=== PATIENT | female | born 1965 | race Two or more races ===

== ENCOUNTER 2017-06-20 16:51 | Inpatient (IN) | payer MEDICAID, OTHER ==
--- NOTE | 2017-06-20 17:08 | CPEKG ---
Heart Rate: 158 RR Interval: 380 QRSD Interval: 98 QT Interval: 332 QTC Interval: 539 QRS [place]: 90 T Wave [place]: 52 EKG Severity - ABNORMAL ECG - EKG Impression: A-FLUTTER W/ PREDOM 2:1 AV BLOCK, A-RATE 319 EKG Impression: BORDERLINE RIGHT AXIS DEVIATION EKG Impression: BORDERLINE ST DEPRESSION, DIFFUSE LEADS EKG Impression: PROLONGED QT INTERVAL Electronically Signed By: Elia Yu 20-Jun-2017 20:55:15
[2017-06-20] MEDS ORDERED: DILTIAZEM 125 MG in D5W 125 ML IV ONE (17:13)
[2017-06-20] MEDS ORDERED: DILTIAZEM 25 MG/5 ML VIAL IVP ONE (17:13)
[2017-06-20] MEDS ORDERED: ASPIRIN 325 MG TAB PO ONE (17:13)
--- NOTE | 2017-06-20 17:13 | EDPHY ---
H & P Stated Complaint: Sharp,intermittent L sided CP x 4 days - Personal History LMP (Females 10-55): 8-14 Days Ago Current Tetanus Diphtheria and Acellular Pertussis (TDAP): Yes Tetanus Vaccine Date: WITHIN 10 YRS - Medical/Surgical History Hx Asthma: No Hx Chronic Respiratory Disease: No Hx Diabetes: No Hx Cardiac Disease: Yes Hx Renal Disease: No Hx Cirrhosis: No Hx Alcoholism: No Hx HIV/AIDS: No Hx Splenectomy or Spleen Trauma: No Other PMH: atrial fibrillation, pericarditis, tubal ligation, open cholecystectomy, c section x3, migraines, mitral valve stenosis, sleep apnea, acid reflux - Social History Smoking Status: Never smoked Time Seen by Provider: 06/20/17 17:01 HPI/ROS: Chief complaint: Chest discomfort History of present illness: This is a 52-year-old female with a history of paroxysmal atrial fibrillation currently on Coumadin who presents to the emergency department for chest discomfort. Patient reports the onset of symptoms over the last 3-4 days. However over the last 1-2 days they have significantly worsened. She describes primarily a pressure that radiates into her neck and left arm. Occasionally she gets a sharp pain. She does occasionally get short of breath most pronounced with exertion. She denies precipitating factors. She denies alleviating factors. She denies other associated signs or symptoms. Review of systems: A 10 point review of systems was obtained and other than described above was negative (Mykel Madrigal) - Physical Exam Exam: General Appearance: Alert, unwell appearing. Eyes: Pupils equal and round no pallor or injection. ENT, Mouth: Mucous membranes moist. Respiratory: There are no retractions, lungs are clear to auscultation. Cardiovascular: Tachycardic with regular rhythm. Gastrointestinal: Abdomen is soft and nontender, no masses, bowel sounds normal. Neurological: Alert and oriented x4. Strength and sensation intact and symmetrical. Skin: Warm and dry, no rashes. Musculoskeletal: Neck is supple nontender. Extremities are symmetrical, full range of motion. Psychiatric: Patient is oriented X 3, there is no agitation. (Mykel Madrigal) Constitutional: Initial Vital Signs Temperature (C) 36.6 C 06/20/17 16:54 Heart Rate 102 H 06/20/17 16:54 Respiratory Rate 22 H 06/20/17 16:54 Blood Pressure 104/82 H 06/20/17 16:54 O2 Sat (%) 98 06/20/17 16:54 O2 Delivery Mode Nasal Cannula O2 (L/minute) 2 Allergies/Adverse Reactions: No Known Allergies Allergy (Verified 06/20/17 16:54) Home Medications: Medication Instructions Recorded Warfarin Sodium [Coumadin 2.5MG 2.5 mg PO DAILY 09/05/15 (*)] Potassium Cl [Klor-Con 20 meq (*)] 20 meq PO DAILY #30 tab 09/06/15 Metoprolol Tartrate [Lopressor 50 50 mg PO BIDMEAL 06/12/16 mg (*)] Pantoprazole Sodium [Protonix 40mg 40 mg PO DAILY 06/12/16 (*)] Propafenone HCl [Rythmol 150mg (*)] 150 mg PO Q8H 06/12/16 Ondansetron Odt [Zofran Odt 4 mg 4 mg PO Q4PRN PRN #10 tab 07/17/16 (*)] Medical Decision Making - Diagnostics Imaging: I viewed and interpreted images myself - Diagnostics Imaging Results: Imaging Impressions Chest X-Ray 06/20/17 17:12 Impression: Negative portable chest. ED Course/Re-evaluation: 17:15 I discussed and examined this patient along with JOSEFINA Amaya. Laboratory studies reviewed. Treatment plan reviewed. I concur with his assessment and plan. Plan to admit for management of tachycardia. Discussed treatment plan with the patient. Alcohol Still Operator at bedside. The patient and her family are comfortable with this plan. (Elia Yu) Patient seen in conjunction with my secondary supervising physician Dr. Elia Yu. Patient presents to the emergency department for chest pain and some exertional dyspnea. Ultimately she appears to be in atrial fibrillation with rapid ventricular rate. She has had this problem previously. She is given an aspirin. She is given 10 mg of Cardizem and started on a Cardizem drip with improvement but not resolution of symptoms. She will be admitted to the hospitalist service, Dr. Coy Huang. On-call cardiology Dr. Harding will follow along. (Mykel Madrigal) Differential Diagnosis: Included but not limited to atrial fibrillation, atrial flutter, supraventricular tachycardia, ventricular tachycardia or fibrillation, ACS, pulmonary embolism (Mykel Madrigal) - Data Points Laboratory Results: Laboratory Results 06/20/17 17:25 06/20/17 17:25 06/20/17 06/20/17 06/20/17 17:25 17:25 17:25 WBC 6.57 10^3/uL 10^3/uL (3.80-9.50) RBC 4.96 10^6/uL 10^6/uL (4.18-5.33) Hgb 13.8 g/dL g/dL (12.6-16.3) Hct 42.0 % % (38.0-47.0) MCV 84.7 fL fL (81.5-99.8) MCH 27.8 pg L pg (27.9-34.1) MCHC 32.9 g/dL g/dL (32.4-36.7) RDW 14.3 % % (11.5-15.2) Plt Count 258 10^3/uL 10^3/uL (150-400) MPV 10.5 fL fL (8.7-11.7) Neut % (Auto) 66.2 % % (39.3-74.2) Lymph % (Auto) 26.3 % % (15.0-45.0) [place] % (Auto) 4.6 % % (4.5-13.0) Eos % (Auto) 2.4 % % (0.6-7.6) Baso % (Auto) 0.3 % % (0.3-1.7) Nucleat RBC Rel Count 0.0 % % (0.0-0.2) Absolute Neuts (auto) 4.35 10^3/uL 10^3/uL (1.70-6.50) Absolute Lymphs (auto) 1.73 10^3/uL 10^3/uL (1.00-3.00) Absolute Monos (auto) 0.30 10^3/uL 10^3/uL (0.30-0.80) Absolute Eos (auto) 0.16 10^3/uL 10^3/uL (0.03-0.40) Absolute Basos (auto) 0.02 10^3/uL 10^3/uL (0.02-0.10) Absolute Nucleated RBC 0.00 10^3/uL 10^3/uL (0-0.01) Immature Gran % 0.2 % % (0.0-1.1) Immature Gran # 0.01 10^3/uL 10^3/uL (0.00-0.10) PT 31.0 SEC H SEC (12.0-15.0) INR 2.94 H (0.83-1.16) APTT 42.7 SEC H SEC (23.0-38.0) Sodium 142 mEq/L mEq/L (134-144) Potassium 3.5 mEq/L mEq/L (3.5-5.2) Chloride 105 mEq/L mEq/L (97-110) Carbon Dioxide 22 mEq/l mEq/l (22-31) Anion Gap 15 mEq/L mEq/L (8-16) BUN 11 mg/dL mg/dL (7-23) Creatinine 0.6 mg/dL mg/dL (0.6-1.0) Estimated GFR > 60 Glucose 202 mg/dL H mg/dL (70-100) Calcium 8.6 mg/dL mg/dL (8.5-10.4) Troponin I < 0.012 ng/mL ng/mL (0.000-0.034) Medications Given: Discontinued Medications Aspirin (Aspirin) 325 mg PO EDNOW ONE Stop: 06/20/17 17:14 Last Admin: 06/20/17 17:21 Dose: 325 mg Diltiazem HCl (Cardizem 25 Mg/5 Ml Vial) 10 mg IVP EDNOW ONE Stop: 06/20/17 17:14 Last Admin: 06/20/17 17:20 Dose: 10 mg Diltiazem HCl 125 mg/ Dextrose 125 mls @ 0 mls/hr IV EDNOW ONE; As Directed PRN Reason: Protocol Stop: 06/20/17 17:14 Last Admin: 06/20/17 17:40 Dose: 125 mls Departure - Departure Disposition: [facility] Acute Clinical Impression: Atrial fibrillation with rapid ventricular response Condition: Fair
[2017-06-20 17:42] LABS: % IMMATURE GRANULYOCYTES 0.2 % (0.0-1.1); ABSOLUTE IMMATURE GRANULOCYTES 0.01 10^3/uL (0.00-0.10); ADD DIFF? NO; ADD MORPH? NO; ADD SCAN? NO; ATYPICAL LYMPHOCYTE FLAG 0 (0-99); FRAGMENT RBC FLAG 0 (0-99); HEMOGLOBIN 13.8 g/dL (12.6-16.3); LEFT SHIFT FLG 0 (0-99); LIPEMIA HEMOLYSIS FLAG 80 (0-99); MEAN CELL HEMOGLOBIN 27.8 pg (27.9-34.1); MEAN CELL HEMOGLOBIN CONCENTR. 32.9 g/dL (32.4-36.7); MEAN CELL VOLUME 84.7 fL (81.5-99.8); MEAN PLATELET VOLUME 10.5 fL (8.7-11.7); PLATELET CLUMPS FLAG 0 (0-99); PLATELET COUNT 258 10^3/uL (150-400); RED BLOOD CELL COUNT 4.96 10^6/uL (4.18-5.33); RED CELL DISTRIBUTION WIDTH 14.3 % (11.5-15.2)
[2017-06-20 17:51] LABS: ANION GAP 15 mEq/L (8-16); CALCIUM 8.6 mg/dL (8.5-10.4); CARBON DIOXIDE 22 mEq/l (22-31); CHLORIDE 105 mEq/L (97-110); CREATININE 0.6 mg/dL (0.6-1.0); GLOMERULAR FILTRATION RATE > 60; GLUCOSE 202 mg/dL (70-100); POTASSIUM 3.5 mEq/L (3.5-5.2); SODIUM 142 mEq/L (134-144)
[2017-06-20 17:52] LABS: INR 2.94 (0.83-1.16)
[2017-06-20 17:53] LABS: APTT 42.7 SEC (23.0-38.0)
[2017-06-20 18:02] LABS: TROPONIN I < 0.012 ng/mL (0.000-0.034)
[2017-06-20] MEDS ORDERED: ONDANSETRON DISINTEGRATING 4 MG TAB PO PRN (21:22)
[2017-06-20] MEDS ORDERED: oxyCODONE IR 5 MG TAB PO PRN (21:22)
[2017-06-20] MEDS ORDERED: ONDANSETRON 4 MG/2 ML VIAL IVP PRN (21:22)
[2017-06-20] MEDS ORDERED: LORazepam 0.5 MG TAB PO PRN (21:22)
[2017-06-20] MEDS ORDERED: ACETAMINOPHEN 325 MG TAB PO PRN (21:24)
[2017-06-20] MEDS ORDERED: NS 1,000 ML IV SCH (21:30)
--- NOTE | 2017-06-20 23:51 | GHP ---
[f rep st] HISTORY AND PHYSICAL DATE OF ADMISSION: 06/20/2017 CHIEF COMPLAINT: Chest pain. HISTORY: This is a 52-year-old female with a past medical history that includes atrial fibrillation and valvular heart disease, presenting with chest pain and dyspnea on exertion. This has been pres ent for at least the last several days but has gotten worse over the course of the day today. She n otes she also feels as if her heart is beating funny and having palpitations. The pain is present p rimarily as a pressure in her in her substernal region and it occasionally radiates into her neck an d arm. She notes that she has had similar symptoms in the past including about 1 year ago when she presented to an outside hospital with similar symptoms and was found to have an irregular heart rhyt hm requiring cardioversion. She notes that since starting medication in the emergency department sh litzy is feeling much better. Prior to these symptoms beginning in the last several days, she had felt well without any preceding illness, no fevers or chills, no swelling or pain in her legs, no urinary symptoms. PAST MEDICAL HISTORY: Includes: 1. Paroxysmal atrial fibrillation, on chronic anticoagulation, and related to mitral stenosis. 2. Valvular heart disease with rheumatic MS. 3. Morbid obesity. 4. Nocturnal hypoxemia, not treated. 5. History of pericarditis. 6. History of migraines. 7. History of recurrent chest pain with heart catheterization in 2014 that was normal and a nuclear stress in 2016 that was normal. 8. GERD. PAST SURGICAL HISTORY: 1. Mitral valve repair. 2. . 3. Cholecystectomy. FAMILY HISTORY: Mother with diabetes. Father of heart disease in his 80s. Father also had hi s first NE at age 35. SOCIAL HISTORY: The patient is a non smoker, nondrinker. She is accompanied by her daughter. REVIEW OF SYSTEMS: A 10-point review of systems obtained and negative, except as per History of Pre sent Illness. HOME MEDICATIONS: 1. Ranitidine. 2. Sucralfate. 3. Ferrous sulfate. 4. Tylenol. 5. Metoprolol. 6. Warfarin. 7. Propafenone. 8. Potassium. 9. Pantoprazole. 10. Warfarin. ALLERGIES: No known drug allergies. PHYSICAL EXAM: VITAL SIGNS: BP 85/71, heart rate 94, respiratory rate 15, O2 saturation 92% on mandy m air. Temperature is 37. GENERAL APPEARANCE: This is an obese female. She is awake and alert. She is in no acute distress. EYES: Anicteric. HENT: Oropharynx clear. CARDIOVASCULAR: Irregularly irregular with a rate in the 90s to low 100s. PULMONARY: CTA bilaterally. ABDOMEN: Obese, soft, nontender. EXTREMITIES: No clubbing, cyanosis, or edema. SKIN: Warm dry well perfus ed. NEURO/PSYCH: Oriented and appropriate, pleasant. CLINICAL DATA: CBC is unremarkable. INR is 2.94. Chemistry is remarkable only for a glucose of 20 2. Chest x-ray personally reviewed and interpreted shows nothing remarkable. EKG personally reviewed and interpreted shows atrial flutter with 2:1 block and an a rate of 319. ASSESSMENT AND PLAN: This is a 52-year-old female, past medical history of atrial fibrillation as w ell as rheumatic heart disease presenting with chest pain in the setting of atrial flutter with rapi d ventricular response. 1. Atrial flutter with rapid ventricular response. The patient has been started on diltiazem drip with improvement of her rate. She is anticoagulated already with a therapeutic INR on her home dose of warfarin. She will be maintained on diltiazem drip overnight. If her rate continues to improve , it may be possible to resume her home medications including Rythmol and metoprolol. However, she also has required cardioversion in the past. She will be monitored overnight on telemetry. Will ob tain serial troponins. Will plan to obtain an echocardiogram in the morning to evaluate for possibl e congestive heart failure or other etiology to account for her issues with rate control. Cardiolog y has been consulted. She will be n.p.o. after midnight in case cardioversion is required. 2. Chest pain. This is in the setting of atrial flutter with rapid ventricular response as above. It does sound as if in the past when she has had issues with chest pain it has been in similar circ umstances. Again, workup will include serial tropes and echocardiogram, but suspect her pain is rel ated to her flutter. 3. Valvular heart disease with history of rheumatic mitral stenosis, status post mitral valve repai r. Again, will obtain an echocardiogram in the morning. 4. Hypotension. This occurred after a bolus of diltiazem. She is asymptomatic at this point, on t he diltiazem drip. Will continue to monitor and bolus p.r.n. hypotension. 5. Hyperglycemia. This is significantly higher than she has been in the past. She does have a bod y habitus concerning for possible diabetes. Will obtain a hemoglobin A1c. 6. Nocturnal hypoxemia. I suspect, given body habitus, likely underlying obstructive sleep apnea/o besity hyperventilation syndrome. She has been intolerant of CPAP in the past. Will provide oxygen p.r.n. while in house. 7. Disposition. Observation status. I suspect she will need less than 48 hours stay for evaluatio n and management of above. Patient is new to my care. Old records reviewed, summarized as per HPI and past medical history. C are plan reviewed with ER physician, including plans for acute coronary syndrome rule out. Further history obtained from patient's daughter and present at bedside. /[id number]/MODL
[2017-06-20] MEDS: PROPAFENONE HCL 150 MG TAB PO SCH (23:52)
[2017-06-20] MEDS: DILTIAZEM 125 MG in D5W 125 ML IV SCH (23:54)
[2017-06-21] MEDS: PROPAFENONE HCL 150 MG TAB PO SCH ×3 (05:20→21:15)
[2017-06-21] MEDS: DILTIAZEM 125 MG in D5W 125 ML IV SCH (05:20)
--- NOTE | 2017-06-21 06:21 | CPEKG ---
Heart Rate: 94 RR Interval: 638 QRSD Interval: 76 QT Interval: 368 QTC Interval: 461 QRS [place]: 89 T Wave [place]: 25 EKG Severity - ABNORMAL ECG - EKG Impression: ATRIAL FIBRILLATION Electronically Signed By: Eduar Florian 21-Jun-2017 17:19:24
[2017-06-21] MEDS: PANTOPRAZOLE SODIUM 40 MG TAB PO SCH ×2 (08:13→21:15)
[2017-06-21] MEDS: FERROUS SULFATE 325 MG TAB PO SCH ×2 (08:13→21:15)
[2017-06-21] MEDS ORDERED: FAMOTIDINE 20 MG TAB PO PRN (09:00)
[2017-06-21] MEDS ORDERED: ATROPINE SULFATE 1 MG/10 ML SYR IVP ONE (10:02)
--- NOTE | 2017-06-21 10:09 | PDCARCONS ---
Cardiology Consult Reason for Consult: Atrial fibrillation Chief Complaint: chest pain Requesting Physician: Caryl History of Present Illness: 52-year-old female well known to our service underlying rheumatic valvular heart disease status post mitral valve balloon valvuloplasty in 2014 with history of persistent atrial fibrillation returns to the hospital with 4 days of chest discomfort, nausea, discomfort in the jaw associated with fatigue. She came to the emergency department last night was found to be in atrial flutter with rapid ventricular response. She has been slowed with diltiazem and this morning she is in atrial fibrillation. With control of rate she is significantly improved though somewhat fatigued. She has no history of coronary artery disease with a normal coronary angiogram in 2015. She has had normal nuclear stress test 1 year ago. Patient has a history of atrial fibrillation requiring LUCIA cardioversion in the past. She has a history of diastolic heart failure in the medical record. She has a history of remote pericarditis. Patient has had no PND orthopnea. She has had mild peripheral swelling that response to diuretic therapy. This is not particularly worse over the last several days. She has had no fever or chills. Her atrial dysrhythmias have been treated in the past with amiodarone. She is currently on Rythmol. She has had no syncope or near syncope. She is compliant with her medications. Patient has a limited lifestyle. She takes care of a grandchild and her house. She does walk some. On my arrival she is relatively comfortable. She is not currently having chest discomfort. Her symptoms were associated with modest nausea. There was no diarrhea or constipation. She has had no dysuria. She has had no bruising or bleeding. She has been compliant with her anticoagulation. History Information - Allergies/Home Medication List Allergies/Adverse Reactions: No Known Allergies Allergy (Verified 06/20/17 16:54) Home Medications: Warfarin Sodium [Coumadin 2.5MG (*)] 2.5 mg PO SUMOWEFRSA@16 09/05/15 [Last Taken 06/20/17] Pantoprazole Sodium [Protonix 40mg (*)] 40 mg PO BID 06/12/16 [Last Taken 09:00] Propafenone HCl [Rythmol 150mg (*)] 150 mg PO Q8H 06/12/16 [Last Taken 06/20/17 16:00] Acetaminophen [Tylenol 325mg (*)] 650 mg PO Q6 PRN 06/20/17 [Last Taken 06/20/17 ] Ferrous Sulfate [Ferrous Sulf 325 MG (*)] 325 mg PO BID 06/20/17 [Last Taken 11/05 09:00] Metoprolol Succinate Xr [Toprol Xl 25 mg (*)] 12.5 mg PO DAILY@06/20/17 [ Last Taken 06/20/17] Potassium Cl [Klor-Con 20 meq (*)] 20 meq PO DAILY@06/20/17 [Last Taken 06/20] Ranitidine HCl [Zantac] 150 mg PO DAILY PRN 06/20/17 [Last Taken 06/20/17] Sucralfate [Carafate] 1 gm PO HS 06/20/17 [Last Taken 06/19/17] Warfarin Sodium [Coumadin 2.5MG (*)] 3.75 mg PO TUTH@06/20/17 [Last Taken ] I have personally reviewed and updated: family history, medical history, social history, surgical history - Past Medical History atrial fibrillation, migraines - Surgical History Reports: cholecystectomy Additional surgical history: Mitral balloon valvuloplasty - Family History Positive for: non-pertinent - Social History Smoking Status: Never smoked Alcohol Use: None Cardiac History - Cardiac History Past Cardiac History: OTHER ( mitral stenosis status post balloon valvuloplasty) Timing/Duration: Days Severity: moderate Severity Scale: 4 Location: other ( left shoulder) Activities at Onset: rest Associated Symptoms: nausea/vomiting Age in Years: < 65 (2) Sex: Female Congestive Heart Failure History: No Hypertension History: No Stroke/TIA/Thromboembolism History: No Vascular Disease History: No Diabetes Mellitus: No [id number] Score: 5 Physical Exam Temp Pulse Resp BP Pulse Ox 36.8 C 89 18 91/54 L 96 06/21/17 07:27 06/21/17 07:27 06/21/17 07:27 06/21/17 07:27 06/21/17 07:27 O2 (L/minute) 2 Constitutional: no apparent distress Eyes: PERRL, anicteric sclera Ears, Nose, Mouth, Throat: moist mucous membranes Cardiovascular: irregularly irregular, No JVD, No edema Peripheral Pulses: 1+: carotid (R), carotid (L), femoral (R), femoral (L), dorsalis-pedis (R), dorsalis-pedis (L) Respiratory: no respiratory distress, no rales or rhonchi, clear to auscultation Gastrointestinal: normoactive bowel sounds, soft, non-tender abdomen, no palpable masses Genitourinary: no bladder fullness Skin: warm, normal color, no rashes or abrasions Musculoskeletal: full muscle strength, no muscle tenderness Neurologic: AAOx3, sensation intact bilaterally, No weakness, No numbness, No facial droop Psychiatric: interacting appropriately, not anxious Lymph, Heme, Immunologic: no cervical LAD, no supraclavicular LAD Lab and Imaging 06/20/17 17:25 06/20/17 17:25 WBC 6.57 10^3/uL (3.80-9.50) 06/20/17 17:25 RBC 4.96 10^6/uL (4.18-5.33) 06/20/17 17:25 Hgb 13.8 g/dL (12.6-16.3) 06/20/17 17:25 Hct 42.0 % (38.0-47.0) 06/20/17 17:25 MCV 84.7 fL (81.5-99.8) 06/20/17 17:25 MCH 27.8 pg (27.9-34.1) L 06/20/17 17:25 MCHC 32.9 g/dL (32.4-36.7) 06/20/17 17:25 RDW 14.3 % (11.5-15.2) 06/20/17 17:25 Plt Count 258 10^3/uL (150-400) 06/20/17 17:25 MPV 10.5 fL (8.7-11.7) 06/20/17 17:25 Neut % (Auto) 66.2 % (39.3-74.2) 06/20/17 17:25 Lymph % (Auto) 26.3 % (15.0-45.0) 06/20/17 17:25 [place] % (Auto) 4.6 % (4.5-13.0) 06/20/17 17:25 Eos % (Auto) 2.4 % (0.6-7.6) 06/20/17 17:25 Baso % (Auto) 0.3 % (0.3-1.7) 06/20/17 17:25 Nucleat RBC Rel Count 0.0 % (0.0-0.2) 06/20/17 17:25 Absolute Neuts (auto) 4.35 10^3/uL (1.70-6.50) 06/20/17 17:25 Absolute Lymphs (auto) 1.73 10^3/uL (1.00-3.00) 06/20/17 17:25 Absolute Monos (auto) 0.30 10^3/uL (0.30-0.80) 06/20/17 17: Absolute Eos (auto) 0.16 10^3/uL (0.03-0.40) 06/20/17 17:25 Absolute Basos (auto) 0.02 10^3/uL (0.02-0.10) 06/20/17: Absolute Nucleated RBC 0.00 10^3/uL (0-0.01) 06/20/17 17:25 Immature Gran % 0.2 % (0.0-1.1) 06/20/17 17: Immature Gran # 0.01 10^3/uL (0.00-0.10) 06/20/17 17:25 PT 31.0 SEC (12.0-15.0) H 06/20/17 17:25 INR 2.94 (0.83-1.16) H 06/20/17 17:25 APTT 42.7 SEC (23.0-38.0) H 06/20/17 17:25 Sodium 142 mEq/L (134-144) 06/20/17 17:25 Potassium 3.5 mEq/L (3.5-5.2) 06/20/17 17:25 Chloride 105 mEq/L (97-110) 06/20/17 17:25 Carbon Dioxide 22 mEq/l (22-31) 06/20/17 17:25 Anion Gap 15 mEq/L (8-16) 06/20/17 17:25 BUN 11 mg/dL (7-23) 06/20/17 17:25 Creatinine 0.6 mg/dL (0.6-1.0) 06/20/17 17:25 Estimated GFR > 60 06/20/17 17:25 Glucose 202 mg/dL (70-100) H 06/20/17 17:25 Calcium 8.6 mg/dL (8.5-10.4) 06/20/17 17:25 Troponin I < 0.012 ng/mL (0.000-0.034) 06/21/17 05:00 TSH 4.850 uIU/mL (0.465-4.680) H 06/20/17 23:50 Visualized and Interpreted Chest x-ray results: Yes Chest X-ray Interpretation: no infiltrate, normal heart size EKG additional interpertation: EKG from 2016 shows sinus rhythm with normal intervals. QT interval was normal. EKG on admission showed atrial flutter with rapid ventricular response. No ST-T changes were noted. EKG this morning showed atrial fibrillation with controlled ventricular response and no dynamic ST-T changes. Echocardiogram: Pending. Echocardiogram from 2014 showed moderate to severe mitral stenosis, mild-to- moderate mitral regurgitation. This was pre valvuloplasty. LV function has been preserved A/P Assessment: cardiac problem list 1. Rheumatic valvular heart disease with history of balloon valvuloplasty for mitral stenosis and mild to moderate mitral regurgitation. 2. Recurrent persistent atrial arrhythmias with documented a flutter and atrial fibrillation. 3. Chronic anticoagulation with chads Vasc score of 2. Patient's arrhythmia clearly began with atrial flutter as documented on the ER EKG. This has deteriorated now to atrial fibrillation. She is rate controlled on diltiazem. She is chronically anticoagulated. In light of 4 days of symptoms would recommend electrical cardioversion. She was on anti-rhythmic therapy with Rythmol. This has been maintaining sinus rhythm. She has been on amiodarone in the past. She is clearly symptomatic and limited. There is no evidence of underlying ischemia. Patient is hypokalemic which may be contributing. She also likely has clinical sleep apnea based on body habitus and clinical history. She is not currently being treated for this. No evidence of acute heart failure. No evidence of occult infection. Plan: 1. Plan for elective cardioversion today with anesthesia. 2. Echocardiogram for assessment of progressive valvular heart disease. 3. Evaluation for long-term therapy. This would include ablation for atrial flutter / fibrillation versus continued chronic anti rhythmic therapy with Rythmol versus changing to amiodarone versus need for valve surgery coupled with Maze procedure. Which options best I do not know at this time. Will await completion of echo and clinical response to cardioversion. We will not be making this decision as an inpatient. She will be followed up by Dr. Sanjana Orellana as an outpatient. I expect that after cardioversion she should be able to go home. 4. Aggressive correction of hypokalemia. Patient possibly need magnesium as well. 5. Sleep study with treatment for sleep apnea. 6. Weight loss and exercise as directed treatment for atrial fibrillation.
[2017-06-21] MEDS ORDERED: POTASSIUM Cl (KCl) 100 ML IV SCH (10:20)
--- NOTE | 2017-06-21 10:48 | ASMTCASEMG ---
Case Management Evaluation Functional: ADL / IADL Answers: Chronic Illness Performance Deficits Due to: Financial Needs Answers: Uninsured Notes: self pay, needs medica id application Discharge Plan Comments Coordination Status Comments Notes: Reviewed chart, spoke w/RN; No case management d/c needs identified. Requested emergency Medicaid application d/t insurance status. Case management available if needs change. Date Signed: 06/21/2017 10:48 AM Electronically Signed By:Mahi Abdalla
[2017-06-21] MEDS ORDERED: PROPOFOL 200 MG/20 ML VIAL ONE (11:10)
[2017-06-21] MEDS ORDERED: POTASSIUM CL 10 MEQ TAB PO ONE (11:15)
--- NOTE | 2017-06-21 11:22 | PDTEE1 ---
LUCIA Cardioversion Procedure Indications: Atrial Fibrillation Consent: Signed and in Chart Anticoagulation: Warfarin Procedural Details: Pads were placed in anterior-posterior position. Synchronized cardioversion attempt #1: 200J Results: Normal sinus rhythm Conclusions: Successful Cardioversion Conclusion Comment: Successful cardioversion to sinus rhythm. Continue current anti rhythmic therapy. Replete potassium. Follow-up Dr. Sanjana Orellana 10-14 days. Patient Problems: Problems Problem Status Onset Chest pain Acute Cough Acute Obesity Acute Mitral stenosis Acute Afib Acute Atrial fibrillation with rapid ventricular response Acute Abdominal pain Acute Urinary tract infection Acute
--- NOTE | 2017-06-21 11:24 | PDANEPAE ---
ANE History of Present Illness 52 yo DCCV ANE Past Medical History - Cardiovascular History Hx Hypertension: Yes Hx Arrhythmias: Yes Hx Chest Pain: Yes Hx Coronary Artery / Peripheral Vascular Disease: No Hx CHF / Valvular Disease: Yes - Pulmonary History Hx COPD: No Hx Asthma/Reactive Airway Disease: No Hx Oxygen in Use at Home: No Hx Sleep Apnea: Yes - Endocrine History Hx Diabetes: No - Chronic Pain History Chronic Pain: Yes (migraines) ANE Patient History - Allergies Allergies/Adverse Reactions: No Known Allergies Allergy (Verified 06/20/17 16:54) - Home Medications Home medications: home medication list seen and reviewed Home Medications: Warfarin Sodium [Coumadin 2.5MG (*)] 2.5 mg PO SUMOWEFRSA@09/05/15 [Last Taken 06/20/17] Pantoprazole Sodium [Protonix 40mg (*)] 40 mg PO BID 06/12/16 [Last Taken 09:00] Propafenone HCl [Rythmol 150mg (*)] 150 mg PO Q8H 06/12/16 [Last Taken 06/20/17 16:00] Acetaminophen [Tylenol 325mg (*)] 650 mg PO Q6 PRN 06/20/17 [Last Taken 06/20/17 ] Ferrous Sulfate [Ferrous Sulf 325 MG (*)] 325 mg PO BID 06/20/17 [Last Taken 11/05 09:00] Metoprolol Succinate Xr [Toprol Xl 25 mg (*)] 12.5 mg PO DAILY@16 06/20/17 [ Last Taken 06/20/17] Potassium Cl [Klor-Con 20 meq (*)] 20 meq PO DAILY@06/20/17 [Last Taken 06/20] Ranitidine HCl [Zantac] 150 mg PO DAILY PRN 06/20/17 [Last Taken 06/20/17] Sucralfate [Carafate] 1 gm PO HS 06/20/17 [Last Taken 06/19/17] Warfarin Sodium [Coumadin 2.5MG (*)] 3.75 mg PO TUTH@16 06/20/17 [Last Taken ] - NPO status NPO Status: no food or drink >8 hours - Smoking Hx Smoking Status: Never smoked - Alcohol Use Alcohol Use: None ANE Labs/Vital Signs - Labs Result Diagrams: 06/20/17 17:25 06/20/17 17:25 - Vital Signs Blood Pressure: 91/54 Heart Rate: 89 Respiratory Rate: 18 O2 Sat (%): 96 Height: 5 ft 0.63 in Weight: 108.8 kg ANE Physical Exam - Airway Neck exam: FROM Mallampati Score: Class 2 Mouth exam: normal dental/mouth exam - ASA Status ASA Status: IV ANE Anesthesia Plan Anesthesia Plan: MAC (ivga)
--- NOTE | 2017-06-21 11:26 | POSTANESTH ---
Post Anesthetic Evaluation Cardiovascular Status: Normal, Stable Respiratory Status: Normal, Stable, Similar to Pre-op Cond. Level of Consciousness/Mental Status: Can Participate in Eval Pain Control: Adequate, Prn Tx Ordered Nausea/Vomiting Control: Adequate, Prn Tx Ordered Complications Possibly Related to Anesthesia: None Noted
--- NOTE | 2017-06-21 13:07 | CPEKG ---
Heart Rate: 61 RR Interval: 984 P-R Interval: 156 QRSD Interval: 80 QT Interval: 460 QTC Interval: 464 P [place]: 38 QRS [place]: 81 T Wave [place]: 53 EKG Severity - OTHERWISE NORMAL ECG - EKG Impression: SINUS RHYTHM EKG Impression: ATRIAL PREMATURE COMPLEX Electronically Signed By: Eduar Florian 21-Jun-2017 17:20:50
[2017-06-21] MEDS: ACETAMINOPHEN 325 MG TAB PO PRN (14:58)
[2017-06-21] MEDS ORDERED: WARFARIN SODIUM 2.5 MG TAB PO SCH (16:00)
[2017-06-21] MEDS ORDERED: POTASSIUM CL 20 MEQ TAB PO SCH (16:00)
[2017-06-21] MEDS ORDERED: METOPROLOL SUCCINATE XR 25 MG TAB PO SCH (16:00)
--- NOTE | 2017-06-21 16:57 | HOSPPROG ---
Hospitalist Progress Note Assessment/Plan: DIAGNOSES: -recurrence of atrial fibrillation in patient with paroxysmal AFib -chest pain, resolved, felt to be due to her atrial fibrillation without evidence of acute coronary syndrome -status post successful cardioversion PLANS: Continue observation on classroom monitor Continue her current cardiac medications Will watch on card monitor again overnight to be certain she maintains NSR Will change to inpt SUBJECTIVE: Patient at this time has no chest pain shortness of breath, fevers, nausea or palpitations She has successfully been cardioverted and tolerated that well with no resultant discomfort or other symptoms OBJECTIVE Vitals reviewed: Stable without fever [employer], my review: Now in sinus rhythm with good heart rate Exam: alert oriented skin warm dry color ok resps not labored lungs clear BSs heart regular abd soft nondistended nontender, bowel sounds present limbs warm, no edema iv site ok Objective: Vital Signs Temp Pulse Resp BP Pulse Ox 36.7 C 70 14 101/60 96 06/21/17 15:47 06/21/17 15:47 06/21/17 15:47 06/21/17 15:47 06/21/17 15:47 PT 31.0 SEC (12.0-15.0) H 06/20/17 17:25 INR 2.94 (0.83-1.16) H 06/20/17 17:25 ICD10 Worksheet Patient Problems: Problems Problem Status Onset Atrial fibrillation with rapid ventricular response Acute Abdominal pain Acute Afib Acute Chest pain Acute Cough Acute Mitral stenosis Acute Obesity Acute Urinary tract infection Acute
--- NOTE | 2017-06-21 17:16 | ECHO ---
[id number] + + [id number] : : [place] [id number] : : [phone] + + Adult Echocardiographic Report + + :Name: SARAH ALLANDelvis Date: 06/21/2017 12:18 PM : : Hospital Admission Number: [id number] Location: 208: :: 1965 Gender: Female Height : 60 in : :Age: 52 yrs [facility] Weight : 339 lb : :Reason For Study: Hx of MS, aflutter with RVR : : BSA: 2 .3 meters2 : :History: Mitral stenosis : + + Doppler Measurements \T\ Calculations MV E max surjit: MV V2 max: MV P1/2t max surjit: Ao mean P.9 cm/sec 166.8 cm/sec 169.1 cm/sec 5.1 mmHg MV A max surjit: MV max PG: MV P1/2t: 133.6 msec Ao V2 mean: 91.9 cm/sec 11.1 mmHg MVA(P1/2t): 1.6 cm2 104.6 cm/sec MV E/A: 1.7 MV V2 mean: MV dec slope: Ao V2 VTI: MV dec time: 104.4 cm/sec 35.7 cm 0.43 sec MV mean P.9 cm/sec2 4.7 mmHg MV V2 VTI: 52.2 cm LV V1 mean PG: PA V2 max: TR max surjit: 4.1 mmHg 70.6 cm/sec 233.5 cm/sec LV V1 mean: PA max PG: TR max P.8 mmHg 93.6 cm/sec 2.0 mmHg RAP systole: LV V1 VTI: 33.0 cm 10.0 mmHg RVSP(TR): 31.8 mmHg Left Ventricle LV is normal in size by visual assessment. There is normal left ventricular wall thickness. Left ventricular systolic function is normal. Right Ventricle The right ventricle is grossly normal size. Atria The left atrium is mild to moderately dilated. Right atrium not well visualized. Mitral Valve There is mildly thickened leaflets with diastolic doming of the anterior mitral leaflet. There is reduced mitral valve leaflet mobility. There is mild mitral stenosis. There is mild mitral regurgitation. Tricuspid Valve The tricuspid valve is normal in structure and function. There is no tricuspid stenosis. There is mild tricuspid regurgitation. Right ventricular systolic pressure is 32mmHg. Aortic Valve The aortic valve is not well visualized. There is no aortic stenosis. There is no aortic insufficiency. Pulmonic Valve The pulmonic valve is not well visualized. Pericardium/Pleural There is no pericardial effusion. There is a fat pad seen. Conclusion A complete two-dimensional transthoracic echocardiogram was performed (2D, M-mode, Doppler and color flow Doppler). The study was technically difficult. Study limited by body habitus. Left ventricular systolic function is normal. The left atrium is mild to moderately dilated. There is mildly thickened leaflets with diastolic doming of the anterior mitral leaflet. There is reduced mitral valve leaflet mobility.There is mild mitral stenosis. There is mild mitral regurgitation. There is mild tricuspid regurgitation. Final Reading Physician: Erik Tarango signed on 06/21/2017 05:15 PM Ordering Physician: Coy Huang Performed By: Preeti Gregory
[2017-06-21] MEDS ORDERED: SUCRALFATE 1 GM TAB PO SCH (21:00)
[2017-06-22] MEDS: PROPAFENONE HCL 150 MG TAB PO SCH ×2 (06:03→13:35)
[2017-06-22] MEDS: ACETAMINOPHEN 325 MG TAB PO PRN (06:03)
[2017-06-22] MEDS: PANTOPRAZOLE SODIUM 40 MG TAB PO SCH (08:17)
[2017-06-22] MEDS: FERROUS SULFATE 325 MG TAB PO SCH (08:18)
[2017-06-22 11:24] VITALS: BP 100/67; PULSE 65; RESP 13; TEMP 97.7; O2SAT 98
--- NOTE | 2017-06-22 15:26 | ASDISCHSUM ---
Discharge Information Plan Status:Home with No Needs Medically Cleared to Leave: Discharge Date:06/22/2017 03:01 PM CM D/C Disposition:Home, Routine, Self-Care ADT D/C Disposition:Home, Routine, Self-Care Projected Discharge Date:06/22/2017 12:00 AM Transportation at D/C:Family Discharge Delay Reason: Follow-Up Date:06/22/2017 12:00 AM Discharge Slot: Final Diagnosis: Placement Information Patient Contact Information Contact Name:MINA Relationship: Address:[address] City:[facility] Phone: [facility] Code:[place] [id number] Email: Financial Information Financial Class:Self-Pay Primary Plan Desc:SELF PAY Primary Plan Number: Secondary Plan Desc: Secondary Plan Number: Assessment Information [facility] Initial CM Assessment Case Management Evaluation Functional: ADL / IADL Answers: Chronic Illness Performance Deficits Due to: Financial Needs Answers: Uninsured Notes: self pay, needs medica id application Discharge Plan Comments Coordination Status Comments Notes: Reviewed chart, spoke w/RN; No case management d/c needs identified. Requested emergency Medicaid application d/t insurance status. Case management available if needs change. Date Signed: 06/21/2017 10:48 AM Electronically Signed By:Mahi Abdalla Intervention Information
--- NOTE | 2017-06-22 17:18 | PDDCSUM ---
Discharge Summary Discharge Summary: DISCHARGE DIAGNOSES: -atrial fibrillation with rapid ventricular rate CONSULTANTS: Dr. Chau Linares PROCEDURES: Electrical cardioversion with conscious sedation HOSPITAL COURSE SUMMARY: This patient with long history of atrial fibrillation on rate control and anticoagulation medicines came into the hospital with atrial fibrillation at this time. There is no evidence of myocardial ischemia or heart failure. There were no other infections or other acute illnesses that would be triggers for her atrial fibrillation. She does take Carafate at home and with the help of it assistant I did have the pharmacist review with her the use of Carafate. It seemed clear that the patient was very well aware of the issues of malabsorption of other medications if she was taking the Carafate and other medicines appropriately to avoid that complication, so that I do not think her atrial fibrillation was caused by that issue at this time. The patient was seen and evaluated by Dr. Linares. He performed electrical cardioversion which was successful and the patient has remained in sinus rhythm since then. This point she is stable for discharge to home. PENDING TEST RESULTS: None MEDICATION CHANGES: None IT SHOULD BE NOTED THAT THE ORIGINAL PHARMACY MEDICATION RECONCILIATION DID NOT CLEAR INCLUDED DIURETIC WHICH WE BELIEVED TO BE LASIX AND THE PATIENT IS ACTUALLY TAKING AT HOME. THE PATIENT WILL CONTINUE TAKING HER DIURETIC PREVIOUSLY PRESCRIBED AT THIS TIME FOLLOW-UP PLAN: In Cardiology Clinic in 2 weeks Greater than 35 minutes bedside and care coordination time today
[2017-06-24 02:36] LABS: HEMOGLOBIN A1C 5.9 % (4.0-6.0)
[2017-06-24] MEDS ORDERED: WARFARIN SODIUM 2.5 MG TAB PO SCH (16:00)
== END 2017-06-22 15:01 | disposition home or self-care (01) | DRG 310 ==
LOC: INTOOBSV 18:27 → F2W 21:10 → OBSVTOIN 06-21 20:42
PROVIDERS: ADMIT Internal Medicine; ATTEND Internal Medicine
PROC: 5A2204Z Restoration of Cardiac Rhythm, Single (ICD-10-PCS; principal; 2017-06-21)
DX: I48.91 Unspecified atrial fibrillation (principal); E66.01 Morbid (severe) obesity due to excess calories; K21.9 Gastro-esophageal reflux disease without esophagitis; Z82.49 Family history of ischemic heart disease and other diseases of the circulatory system; Z79.01 Long term (current) use of anticoagulants
CPT/HCPCS: 96365; 96366; G0378; J0461; J2704

== ENCOUNTER 2017-07-14 17:26 | Emergency (ER) | payer MEDICAID, OTHER ==
--- NOTE | 2017-07-14 19:13 | CPEKG ---
Heart Rate: 83 RR Interval: 723 P-R Interval: 136 QRSD Interval: 78 QT Interval: 364 QTC Interval: 428 P [place]: 29 QRS [place]: 90 T Wave [place]: 40 EKG Severity - OTHERWISE NORMAL ECG - EKG Impression: SINUS RHYTHM EKG Impression: BORDERLINE RIGHT AXIS DEVIATION Electronically Signed By: Maged Duarte 14-Jul-2017 23:42:08
--- NOTE | 2017-07-14 19:20 | EDPHY ---
H & P Time Seen by Provider: 07/14/17 19:17 HPI/ROS: Chief complaint. Chest pain HPI. 52-year-old female presents emergency department with complaint of headache and chest pain for 3 days. No injury to her head. She is on blood thinners for chronic atrial fibrillation. Her chest pain is described as left anterior and sharp radiating through to her back. It is worse with deep breathing. It is not worse with exertion or movement. She is not sick and has not had fever or cough. She does have some left lower extremity pain however no swelling. No abdominal pain or vomiting or diarrhea. She has a history of migraine headaches. Normal heart catheterization in 2015. Normal nuclear stress test in 2016. ROS Constitutional. no fever/chills, no weakness Eyes. no problems with vision ENT. no sore throat, no nasal drainage Cardiovascular. Left anterior chest pain Respiratory. no shortness of breath, no cough Abdominal. no abdominal pain, no nausea/vomiting, no diarrhea . no problems urinating MS. no calf pain/swelling, no neck/back pain, no joint pain Skin. no rash Lymph. no swollen glands Neuro. Headache Past Medical/Surgical History: Past medical history is significant for paroxysmal atrial fibrillation, pericarditis, cholecystectomy, migraines, mitral stenosis with mitral valve repair, cholecystectomy GERD, sleep apnea, obesity Social History: , nonsmoker, no alcohol Smoking Status: Never smoked Physical Exam: General Appearance: Alert well-developed female mild distress vital signs are stable Eyes: Pupils equal and round no pallor or injection. ENT, tympanic membranes normal pharynx without injection Respiratory: There are no retractions, lungs are clear to auscultation. Cardiovascular: Regular rate and rhythm. Gastrointestinal: Abdomen is soft and nontender, no masses, bowel sounds normal. Neurological: Awake and alert, sensory and motor exams grossly normal. Skin: Warm and dry, no rashes. Musculoskeletal: Neck is supple nontender. Extremities symmetrical, full range of motion. Psychiatric: Patient is oriented X 3, there is no agitation. Constitutional: Initial Vital Signs Temperature (C) 37.4 C 07/14/17 17:30 Heart Rate 99 07/14/17 17:30 Respiratory Rate 18 07/14/17 17:30 Blood Pressure 150/76 H 07/14/17 17:30 O2 Sat (%) 96 07/14/17 17:30 O2 Delivery Mode Room Air Allergies/Adverse Reactions: No Known Allergies Allergy (Verified 07/14/17 17:37) Home Medications: Medication Instructions Recorded Pantoprazole Sodium [Protonix 40mg 40 mg PO BID 06/12/16 (*)] Propafenone HCl [Rythmol 150mg (*)] 150 mg PO Q8H 06/12/16 Ferrous Sulfate [Ferrous Sulf 325 325 mg PO BID 06/20/17 MG (*)] Metoprolol Succinate Xr [Toprol Xl 12.5 mg PO DAILY@16 06/20/17 25 mg (*)] Potassium Cl [Klor-Con 20 meq (*)] 20 meq PO DAILY@06/20/17 Sucralfate [Carafate 1 GM (*)] 1 gm PO HS 06/20/17 Warfarin Sodium [Coumadin 2.5MG 3.75 mg PO TUTH@06/20/17 (*)] Medical Decision Making - Diagnostics EKG Interpretation: EKG interpreted by me shows normal sinus rhythm with normal interval. There is borderline right axis deviation. There is no significant ST elevation or depression. QRS is otherwise normal. No arrhythmia. The rate is 83 Imaging Results: Imaging Impressions Chest/Thorax CTA 07/14/17 19:37 Impression: 1. No visible pulmonary embolus, with slightly limited visualization of peripheral segmental and subsegmental vessels 2. Enlarged main pulmonary artery suggesting pulmonary artery hypertension. 3. Additional findings, as above. Head CT 07/14/17 19:37 Impression: No acute intracranial findings. Findings discussed with Maged Duarte M.D., on July 14, [address] shows no evidence of intracranial hemorrhage Chest CT shows no evidence for pulmonary embolus Procedures: IV normal saline. IV Reglan and Benadryl for headache ED Course/Re-evaluation: Re-evaluation 10:15 p.m.--the patient is stable and headache was resolved. She feels well and tells Me She is ready to go home patient, family, and I discussed imaging and lab results. We discussed treatment plan including criteria for return importance of follow-up further evaluation. She expresses understanding and agreement Differential Diagnosis: I considered migraine headache, intracranial bleeding is the patient is on Coumadin. Shortness of breath I considered pneumonia, congestive heart failure , acute coronary syndrome, pulmonary embolus - Data Points Laboratory Results: Laboratory Results 07/14/17 20:00 07/14/17 20:00 07/14/17 07/14/17 07/14/17 20:00 20:00 20:00 WBC 11.36 10^3/uL H 10^3/uL (3.80-9.50) RBC 5.05 10^6/uL 10^6/uL (4.18-5.33) Hgb 14.1 g/dL g/dL (12.6-16.3) Hct 42.5 % % (38.0-47.0) MCV 84.2 fL fL (81.5-99.8) MCH 27.9 pg pg (27.9-34.1) MCHC 33.2 g/dL g/dL (32.4-36.7) RDW 13.8 % % (11.5-15.2) Plt Count 245 10^3/uL 10^3/uL (150-400) MPV 10.7 fL fL (8.7-11.7) Neut % (Auto) 76.7 % H % (39.3-74.2) Lymph % (Auto) 16.8 % % (15.0-45.0) Cook % (Auto) 5.0 % % (4.5-13.0) Eos % (Auto) 1.1 % % (0.6-7.6) Baso % (Auto) 0.2 % L % (0.3-1.7) Nucleat RBC Rel Count 0.0 % % (0.0-0.2) Absolute Neuts (auto) 8.71 10^3/uL H 10^3/uL (1.70-6.50) Absolute Lymphs (auto) 1.91 10^3/uL 10^3/uL (1.00-3.00) Absolute Monos (auto) 0.57 10^3/uL 10^3/uL (0.30-0.80) Absolute Eos (auto) 0.13 10^3/uL 10^3/uL (0.03-0.40) Absolute Basos (auto) 0.02 10^3/uL 10^3/uL (0.02-0.10) Absolute Nucleated RBC 0.00 10^3/uL 10^3/uL (0-0.01) Immature Gran % 0.2 % % (0.0-1.1) Immature Gran # 0.02 10^3/uL 10^3/uL (0.00-0.10) PT 27.2 SEC H SEC (12.0-15.0) INR 2.49 H (0.83-1.16) APTT 46.7 SEC H SEC (23.0-38.0) D-Dimer 0.48 ug/mLFEU ug/mLFEU (0.00-0.50) Sodium 134 mEq/L mEq/L (134-144) Potassium 3.7 mEq/L mEq/L (3.5-5.2) Chloride 100 mEq/L mEq/L (97-110) Carbon Dioxide 25 mEq/l mEq/l (22-31) Anion Gap 9 mEq/L mEq/L (8-16) BUN 11 mg/dL mg/dL (7-23) Creatinine 0.7 mg/dL mg/dL (0.6-1.0) Estimated GFR > 60 Glucose 139 mg/dL H mg/dL (70-100) Calcium 9.1 mg/dL mg/dL (8.5-10.4) Troponin I < 0.012 ng/mL ng/mL (0.000-0.034) Medications Given: Discontinued Medications Diphenhydramine HCl (Benadryl Injection) 25 mg IVP EDNOW ONE Stop: 07/14/17 19:37 Last Admin: 07/14/17 19:55 Dose: 25 mg Sodium Chloride (Ns) 1,000 mls @ 0 mls/hr IV ONCE ONE; Wide Open PRN Reason: Protocol Stop: 07/14/17 19:37 Last Admin: 07/14/17 19:59 Dose: 1,000 mls Metoclopramide HCl (Reglan Injection) 10 mg IVP EDNOW ONE Stop: 07/14/17 19:37 Last Admin: 07/14/17 19:59 Dose: 10 mg Departure - Departure Disposition: Home, Routine, Self-Care Clinical Impression: Migraine headache Qualifiers: Migraine type: other Status migrainosus presence: without status migrainosus Intractability: not intractable Qualified Code(s): G43.809 - Other migraine, not intractable, without status migrainosus Dyspnea Qualifiers: Dyspnea type: unspecified Qualified Code(s): R06.00 - Dyspnea, unspecified Condition: Good Instructions: Acute Headache (ED) Additional Instructions: Continue regular medications. Tylenol 1000 mg every 4-6 hours as needed for headache. Flexeril 1 pill every 6-8 hours in addition for headache if necessary. Return for worsening symptoms. Re-evaluation by regular physician in 1-2 days if not improved Referrals: MELBA ZAMORA [Other] - 1 day, if not improved
[2017-07-14] MEDS ORDERED: METOCLOPRAMIDE 10 MG/2 ML VIAL IVP ONE (19:36)
[2017-07-14] MEDS ORDERED: NS 1,000 ML IV ONE (19:36)
[2017-07-14 20:22] LABS: % IMMATURE GRANULYOCYTES 0.2 % (0.0-1.1); ABSOLUTE IMMATURE GRANULOCYTES 0.02 10^3/uL (0.00-0.10); ADD DIFF? NO; ADD MORPH? NO; ADD SCAN? NO; ATYPICAL LYMPHOCYTE FLAG 0 (0-99); FRAGMENT RBC FLAG 0 (0-99); HEMATOCRIT 42.5 % (38.0-47.0); HEMOGLOBIN 14.1 g/dL (12.6-16.3); LEFT SHIFT FLG 0 (0-99); LIPEMIA HEMOLYSIS FLAG 80 (0-99); MEAN CELL HEMOGLOBIN 27.9 pg (27.9-34.1); MEAN CELL HEMOGLOBIN CONCENTR. 33.2 g/dL (32.4-36.7); MEAN CELL VOLUME 84.2 fL (81.5-99.8); MEAN PLATELET VOLUME 10.7 fL (8.7-11.7); PLATELET CLUMPS FLAG 10 (0-99); PLATELET COUNT 245 10^3/uL (150-400); RED BLOOD CELL COUNT 5.05 10^6/uL (4.18-5.33); RED CELL DISTRIBUTION WIDTH 13.8 % (11.5-15.2)
[2017-07-14 20:30] LABS: ANION GAP 9 mEq/L (8-16); CALCIUM 9.1 mg/dL (8.5-10.4); CARBON DIOXIDE 25 mEq/l (22-31); CHLORIDE 100 mEq/L (97-110); CREATININE 0.7 mg/dL (0.6-1.0); GLOMERULAR FILTRATION RATE > 60; GLUCOSE 139 mg/dL (70-100); POTASSIUM 3.7 mEq/L (3.5-5.2); SODIUM 134 mEq/L (134-144)
[2017-07-14] MEDS ORDERED: IOPAMIDOL (ISOVUE 370) 100 ML BTL IV ONE (20:32)
[2017-07-14 20:33] LABS: INR 2.49 (0.83-1.16); PROTIME(PATIENT) 27.2 SEC (12.0-15.0)
[2017-07-14 20:34] LABS: APTT 46.7 SEC (23.0-38.0)
[2017-07-14 20:42] LABS: TROPONIN I < 0.012 ng/mL (0.000-0.034)
[2017-07-14 22:10] VITALS: RESP 16; TEMP 96.8
[2017-07-14] MEDS ORDERED: CYCLOBENZAPRINE 10MG PREPACK#3 BTL TAKEHOME ONE (22:23)
[2017-07-14 22:33] VITALS: BP 95/69; PULSE 77; O2SAT 92
== END 2017-07-14 22:46 | disposition home or self-care (01) ==
DX: G43.809 Other migraine, not intractable, without status migrainosus (principal); R06.00 Dyspnea, unspecified; E86.9 Volume depletion, unspecified; Z79.01 Long term (current) use of anticoagulants
CPT/HCPCS: 96374; J1200; J2765; Q9967

== ENCOUNTER 2017-08-13 12:12 | Inpatient (IN) | payer OTHER ==
--- NOTE | 2017-08-13 12:41 | CPEKG ---
Heart Rate: 155 RR Interval: 387 QRSD Interval: 68 QT Interval: 288 QTC Interval: 463 QRS [place]: 93 T Wave [place]: -30 EKG Severity - ABNORMAL ECG - EKG Impression: ATRIAL FIBRILLATION, V-RATE 93-181 EKG Impression: VENTRICULAR PREMATURE COMPLEX EKG Impression: BORDERLINE RIGHT AXIS DEVIATION Electronically Signed By: Kee Dumont 13-Aug-2017 13:13:58
[2017-08-13] MEDS ORDERED: DILTIAZEM 125 MG in D5W 125 ML IV ONE (12:58)
[2017-08-13] MEDS ORDERED: NS 500 ML IV ONE (12:59)
[2017-08-13] MEDS ORDERED: DILTIAZEM 25 MG/5 ML VIAL IVP ONE (12:59)
[2017-08-13 13:04] LABS: % IMMATURE GRANULYOCYTES 0.1 % (0.0-1.1); ABSOLUTE IMMATURE GRANULOCYTES 0.01 10^3/uL (0.00-0.10); ADD DIFF? NO; ADD MORPH? NO; ADD SCAN? NO; ATYPICAL LYMPHOCYTE FLAG 0 (0-99); FRAGMENT RBC FLAG 0 (0-99); HEMATOCRIT 39.1 % (38.0-47.0); HEMOGLOBIN 13.2 g/dL (12.6-16.3); LEFT SHIFT FLG 0 (0-99); LIPEMIA HEMOLYSIS FLAG 90 (0-99); MEAN CELL HEMOGLOBIN 28.4 pg (27.9-34.1); MEAN CELL HEMOGLOBIN CONCENTR. 33.8 g/dL (32.4-36.7); MEAN CELL VOLUME 84.1 fL (81.5-99.8); MEAN PLATELET VOLUME 10.2 fL (8.7-11.7); PLATELET CLUMPS FLAG 0 (0-99); PLATELET COUNT 221 10^3/uL (150-400); RED BLOOD CELL COUNT 4.65 10^6/uL (4.18-5.33)
--- NOTE | 2017-08-13 13:05 | EDPHY ---
H & P Time Seen by Provider: 08/13/17 12:41 HPI/ROS: CHIEF COMPLAINT: Chest pain HISTORY OF PRESENT ILLNESS: Patient has a history of atrial fibrillation and recently had a hospitalization at [facility] from July 18 July 28 for "a lump in her rectum "with subsequent complications of blood clots. She was at clinic today to get her INR drawn reports that was 5.5. She presents today with chest pain starting last night which radiates to her left arm and associated with throat discomfort and sense of rapid heart rate. She was changed to digoxin and diltiazem 3 weeks ago for unknown reason. Symptoms moderate today. REVIEW OF SYSTEMS: Eye: no change in vision ENT: no sore throat Cardiac: HPI, no syncope Pulmonary: no cough or SOB Abdomen: no vomiting, diarrhea, abdominal pain Musculoskeletal: no back pain Skin: no rash Neuro: Headache since last night Constitutional: no fever : no urinary symptoms A comprehensive 10 point review of systems is otherwise negative aside from elements mentioned in the history of present illness. PAST MEDICAL HISTORY: Includes atrial fibrillation, recent hospitalization is described; Record from [facility] reviewed at 1352 includes admission on 07/23/2017 for multiple infarcts after stopping warfarin for perirectal abscess surgery, atrial fibrillation, balloon valvuloplasty in April of 2015 for rheumatic fever related mitral valve stenosis. 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 General Appearance: Alert and conversant, cooperative. Eyes: No scleral icterus. ENT, Mouth: Normal mucous membranes. Respiratory: Normal respiratory effort, breath sounds equal, lungs are clear to auscultation. Cardiovascular: Irregular rate and rhythm tachycardic. Gastrointestinal: Abdomen is soft and non tender. Neurological: Alert and oriented x3. Normally conversant. Face symmetric, normal movement and sensation in all extremities. Skin: Warm and dry, no rashes. Musculoskeletal: No peripheral edema and no joint swelling. Psychiatric: Not agitated. Emergency Department course/MDM: Patient given 12.5 mg IV Phenergan for nausea, noncontrast head CT for headache and warfarin, IV diltiazem bolus and drip started for rapid atrial fibrillation. Negative head CT per Isuani at 1308. Performed for headache and anticoagulation. No aspirin for chest pain because of elevated INR. Admitted on diltiazem drip 5 milligrams/hour. Smoking Status: Never smoked Constitutional: Initial Vital Signs Temperature (C) 37 C 08/13/17 12:20 Heart Rate 88 08/13/17 12:20 Respiratory Rate 18 08/13/17 12:20 Blood Pressure 144/77 H 08/13/17 12:20 O2 Sat (%) 92 08/13/17 12:20 O2 Delivery Mode Room Air Allergies/Adverse Reactions: No Known Allergies Allergy (Verified 08/13/17 12:34) Home Medications: Medication Instructions Recorded Pantoprazole Sodium [Protonix 40mg 40 mg PO BID 06/12/16 (*)] Ferrous Sulfate [Ferrous Sulf 325 325 mg PO BID 06/20/17 MG (*)] Potassium Cl [Klor-Con 20 meq (*)] 20 meq PO DAILY 06/20/17 Sucralfate [Carafate 1 GM (*)] 1 gm PO HS 06/20/17 Warfarin Sodium [Coumadin 2.5MG 2.5 mg PO DAILY16 06/20/17 (*)] Digoxin [Lanoxin 250 mcg (RX)] 250 mcg PO DAILY10 08/13/17 Diltiazem HCl [Cartia Xt] 120 mg PO DAILY 08/13/17 Metoprolol Succinate Xr [Toprol Xl 50 mg PO BID 08/13/17 50 mg (*)] Medical Decision Making - Diagnostics EKG Interpretation: 12-lead EKG interpreted by me; official reading is in trace master. My interpretation is atrial fibrillation rate 155 with borderline right axis. Imaging Results: Imaging Impressions Chest X-Ray 08/13/17 12:58 Impression: Chronic mild airways disease. No acute process. Head CT 08/13/17 12:58 Impression: 1. Normal CT brain without contrast. 2. Mild bilateral ethmoid sinusitis. 3. No intracranial hemorrhage or mass effect. 4. Consider MRI of the brain without and with contrast enhancement, if there is continued clinical concern. Findings and recommendations discussed with Emergency Department physician, Kee Duomnt at 1415 hour, 08/13/2017. Final report concurs with initial preliminary interpretation. Differential Diagnosis: Differential diagnosis considered for chest pain including but not limited to myocardial ischemia, aortic dissection, pericarditis, pulmonary embolus, chest wall pain, pleural inflammation and pulmonary infectious causes. Consult/Admit Bed Type: [place] [id number] Critical Care Time: Critical care time spent by me, Dr. Dumont, exclusively with the care of this patient was 35 minutes, exclusive of PA or WASTE MANAGEMENT ENGINEER time and exclusive of separate procedures. The organ system at risk was cardiovascular and I ordered IV diltiazem bolus and drip, multiple diagnostics, discussion with hospitalist, to stabilize the patient and prevent worsening of the patient's condition. - Data Points Laboratory Results: Laboratory Results 08/13/17 12:55 08/13/17 12:55 08/13/17 08/13/17 08/13/17 12:55 12:55 12:55 WBC 7.65 10^3/uL 10^3/uL (3.80-9.50) RBC 4.65 10^6/uL 10^6/uL (4.18-5.33) Hgb 13.2 g/dL g/dL (12.6-16.3) Hct 39.1 % % (38.0-47.0) MCV 84.1 fL fL (81.5-99.8) MCH 28.4 pg pg (27.9-34.1) MCHC 33.8 g/dL g/dL (32.4-36.7) RDW 15.0 % % (11.5-15.2) Plt Count 221 10^3/uL 10^3/uL (150-400) MPV 10.2 fL fL (8.7-11.7) Neut % (Auto) 74.8 % H % (39.3-74.2) Lymph % (Auto) 16.5 % % (15.0-45.0) Dewitt % (Auto) 6.0 % % (4.5-13.0) Eos % (Auto) 2.2 % % (0.6-7.6) Baso % (Auto) 0.4 % % (0.3-1.7) Nucleat RBC Rel Count 0.0 % % (0.0-0.2) Absolute Neuts (auto) 5.72 10^3/uL 10^3/uL (1.70-6.50) Absolute Lymphs (auto) 1.26 10^3/uL 10^3/uL (1.00-3.00) Absolute Monos (auto) 0.46 10^3/uL 10^3/uL (0.30-0.80) Absolute Eos (auto) 0.17 10^3/uL 10^3/uL (0.03-0.40) Absolute Basos (auto) 0.03 10^3/uL 10^3/uL (0.02-0.10) Absolute Nucleated RBC 0.00 10^3/uL 10^3/uL (0-0.01) Immature Gran % 0.1 % % (0.0-1.1) Immature Gran # 0.01 10^3/uL 10^3/uL (0.00-0.10) PT 40.5 SEC H SEC (12.0-15.0) INR 4.10 H (0.83-1.16) APTT 51.0 SEC H SEC (23.0-38.0) Sodium 141 mEq/L mEq/L (134-144) Potassium 3.8 mEq/L mEq/L (3.5-5.2) Chloride 104 mEq/L mEq/L (97-110) Carbon Dioxide 24 mEq/l mEq/l (22-31) Anion Gap 13 mEq/L mEq/L (8-16) BUN 7 mg/dL mg/dL (7-23) Creatinine 0.6 mg/dL mg/dL (0.6-1.0) Estimated GFR > 60 Glucose 128 mg/dL H mg/dL (70-100) Calcium 9.1 mg/dL mg/dL (8.5-10.4) Troponin I < 0.012 ng/mL ng/mL (0.000-0.034) Digoxin 1.5 ng/mL ng/mL (0.8-2.0) Medications Given: Tramadol HCl (Ultram) 50 mg PO Q6HRS PRN PRN Reason: Pain, Moderate Able to Take PO Stop: 02/09/18 17:12 Last Admin: 08/13/17 17:35 Dose: 50 mg Discontinued Medications Acetaminophen (Tylenol) 650 mg PO EDNOW ONE Stop: 08/13/17 14:08 Last Admin: 08/13/17 14:14 Dose: 500 mg Diltiazem HCl (Cardizem 25 Mg/5 Ml Vial) 20 mg IVP EDNOW ONE Stop: 08/13/17 13:00 Last Admin: 08/13/17 13:04 Dose: 10 mg Fentanyl (Sublimaze) 50 mcg IVP EDNOW ONE Stop: 08/13/17 14:08 Last Admin: 08/13/17 14:17 Dose: 50 mcg Diltiazem HCl 125 mg/ Dextrose 125 mls @ 0 mls/hr IV EDNOW ONE; As Directed PRN Reason: Protocol Stop: 08/13/17 12:59 Last Admin: 08/13/17 13:30 Dose: 125 mls Sodium Chloride (Ns) 500 mls @ 0 mls/hr IV EDNOW ONE; Wide Open PRN Reason: Protocol Stop: 08/13/17 13:00 Last Admin: 08/13/17 13:07 Dose: 500 mls Departure - Departure Disposition: [facility] Inpatient Acute Clinical Impression: Atrial fibrillation with rapid ventricular response Chest pain Qualifiers: Chest pain type: unspecified Qualified Code(s): R07.9 - Chest pain, unspecified Condition: Good
[2017-08-13 13:14] LABS: INR 4.1 (0.83-1.16); PROTIME(PATIENT) 40.5 SEC (12.0-15.0)
[2017-08-13 13:19] LABS: ANION GAP 13 mEq/L (8-16); CALCIUM 9.1 mg/dL (8.5-10.4); CARBON DIOXIDE 24 mEq/l (22-31); CHLORIDE 104 mEq/L (97-110); CREATININE 0.6 mg/dL (0.6-1.0); DIGOXIN 1.5 ng/mL (0.8-2.0); GLOMERULAR FILTRATION RATE > 60; GLUCOSE 128 mg/dL (70-100); POTASSIUM 3.8 mEq/L (3.5-5.2); SODIUM 141 mEq/L (134-144)
[2017-08-13 13:28] LABS: TROPONIN I < 0.012 ng/mL (0.000-0.034)
[2017-08-13] MEDS ORDERED: fentaNYL 100 MCG/2 ML INJ IVP ONE (14:07)
[2017-08-13] MEDS ORDERED: ACETAMINOPHEN 500 MG TAB PO ONE (14:07)
[2017-08-13] MEDS ORDERED: ONDANSETRON 4 MG/2 ML VIAL IVP PRN (14:44)
[2017-08-13] MEDS ORDERED: DILTIAZEM 125 MG in D5W 125 ML IV SCH (15:00)
[2017-08-13] MEDS ORDERED: WARFARIN SODIUM 2.5 MG TAB PO SCH (16:00)
[2017-08-13] MEDS ORDERED: oxyCODONE IR 5 MG TAB PO PRN (17:13)
[2017-08-13] MEDS: traMADol 50 MG TAB PO PRN (17:35)
--- NOTE | 2017-08-13 17:53 | PDGENHP ---
History and Physical History and Physical: The interview and examination for this visit were done with medical nuclear control room operator in the room as well as her family to help. We also have some records from [facility] CC: Chest pain HISTORY: This patient who has a long history of episodes of rapid atrial fibrillation manifesting as chest pain and shortness of breath also with some neck and throat pain, comes into the ER with the same usual symptoms. She was found to have rapid ventricular regular rate atrial fibrillation with good blood pressure and without hypoxemia or signs of heart failure in the ER and started on diltiazem drip. Her chronic in his recent cardiac history or fairly complicated. She has been here several times with AFib and chest pain and had rate control that is been very difficult to manage with medications. She was last seen here at the beginning of June of this year when she had rapid atrial fibrillation was treated with cardioversion and discharged home. She was on her usual doses of ongoing beta-jeanette and diltiazem. At the end of June she went to the [facility] with pain and was found to have a rectal abscess requiring surgery. This required discontinuation of her Coumadin. She had the surgery and was discharged home. I cannot tell if she was given bridging therapy but she was to start her Coumadin back on July 21. She then showed up at [facility] on July 23 with pain in her back and abdomen and had acute infarcts of her spleen and right kidney as well as a thrombus in her SMA system. She was started on anticoagulant again there and eventually discharged home. The pain of those infarcts is now resolved and she is eating and drinking okay and having good bowel movements. Her perirectal pain is resolved. She showed up at her clinic today with chest pain as above and also had a blood test showing an INR of 5. Here in the ER today her INR is 4. Notably also while at [facility] they saw that she was not rate controlled on her diltiazem and beta-jeanette. Her diltiazem was therefore stopped and she was started on digoxin which she is now taking. Therefore she comes into the ER today with digoxin not rate controlling her despite did level of 1.5 in addition to her beta-jeanette In the ER she started on diltiazem drip and her rate control is improved significantly though she still in the 110 range. However this has resolved nearly completely her chest and neck discomforts and her dyspnea. She has had no fevers. ROS: A comprehensive 10 system review revealed no other significant findings PAST MEDICAL HISTORY: Atrial fibrillation complicated as above Multiple AFib related infarcts as above Obesity Diastolic congestive heart failure Mitral valve stenosis treated by valvuloplasty in 2014 Pericarditis Migraine headaches Nocturnal hypoxia, chronic respiratory failure Chest pain episodes evaluated with angiography normal in 2015 and myocardial perfusion imaging normal in 2016 Cholecystectomy section FAMILY MEDICAL HISTORY: Father had AK at age 35 and of heart disease at 80 and there is also diabetes in the family SOCIAL HISTORY: lives with her . Her and son are with her and are very supportive No tobacco alcohol or drugs MEDICATIONS: The patients list has been reconciled by our clinical pharmacist in the EMR. I have reviewed the list and ordered appropriate medicines. PHYSICAL EXAMINATION: Vital Signs: Currently still with heart rate at 110 original heart rate around 150, blood pressure respirations and temperature stable Hardener Helper: Rapid atrial fibrillation Examination: General: alert, oriented, good mentation, mildly anxious and mildly uncomfortable Skin: warm, dry, good color, no rash HEENT: normal Neck: no mass or jvd Resps: relaxed Lungs: clear breath sounds Heart: irregular, no murmur Abdomen: soft, nondistended, nontender, +BS, no mass Upper Extremities: normal Lower Extremities: no edema, warm No Bleeding or bruising Neurologic: normal speech/language, normal risk officer, no focal weakness IV site: looks normal LABORATORY DATA: Digital level 1.5 INR 4 Normal renal function and electrolytes RADIOLOGY STUDIES: Chest x-ray with no signs of acute heart failure, some enlargement of her right outflow tract suggesting pulmonary hypertension 12 LEAD EKG: Rapid atrial fibrillation with narrow complex and no sign of ischemia ASSESSMENT: -uncontrolled rapid atrial fibrillation on digoxin with good drug level and on beta-jeanette, symptomatic with her usual chest pain and dyspnea for rapid AFib; long history of poorly controlled atrial fibrillation despite multiple attempts and recent changed from diltiazem to digoxin with ongoing beta-jeanette -excessive anticoagulation on Coumadin with INR 4 -episode of multiple systemic embolic infarction AFib on July 23 including a splenic infarct, right renal infarct, and 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 We have seen her here before with uncontrolled rate and has started early this has been difficult to control. In addition to her current situation is complicated by the fact that she has had recent very threatening systemic arterial embolisms to several organs just a little over 2 weeks ago. She was successfully cardioverted here at the beginning of June. I reviewed her case in detail with doctors Chris Hebert and Sandro Weldon of Cardiology. It may be that in the and the best thing to do would be to consider an ablation with beta-blockers and a pacemaker. However taking her off of anticoagulation due of this would be quite risky given the current setting. We may need to anticoagulate her for. . Notably she was taken off of her diltiazem at another hospital just recently because of poor rate control on beta-jeanette and diltiazem, however we are controlling her heart rate with diltiazem drip here in the emergency room though at maximum dose there. At this point she needs to have her INR come down a bit and so her Coumadin will be held and watch very closely but she will clearly need to be on anticoagulation that will need to be watched very closely. The new oral anticoagulants are probably not safe consideration given her recent emboli and her mitral valve disease and valvuloplasty. She also needs rate control and we seem to be able to accomplish that with medicines and so will probably end up going with beta-jeanette and diltiazem. Will have to review her old records here to see if there is a recent she is not on a higher beta-jeanette dose. The Cardiology team agrees to follow her with me. I have reviewed the patient's past medical records as part of this assessment, including previous hospital records here as well as records from the [facility] from earlier this month
[2017-08-13] MEDS: FERROUS SULFATE 325 MG TAB PO SCH (21:15)
[2017-08-13] MEDS: METOPROLOL SUCCINATE XR 50 MG TAB PO SCH (21:15)
[2017-08-13] MEDS: PANTOPRAZOLE SODIUM 40 MG TAB PO SCH (21:16)
[2017-08-14 05:29] LABS: INR 3.62 (0.83-1.16); PROTIME(PATIENT) 36.7 SEC (12.0-15.0)
[2017-08-14 05:32] LABS: ALANINE AMINOTRANSFERASE 46 IU/L (9-52); ALKALINE PHOSPHATASE 87 IU/L (38-126); ANION GAP 13 mEq/L (8-16); ASPARTATE AMINOTRANSFERASE 33 IU/L (14-46); BILIRUBIN,TOTAL 0.6 mg/dL (0.1-1.4); BILIRUBIN-CONJUGATED 0.1 mg/dL (0.0-0.5); BILIRUBIN-UNCONJUGATED 0.5 mg/dL (0.0-1.1); CALCIUM 8.6 mg/dL (8.5-10.4); CARBON DIOXIDE 25 mEq/l (22-31); CHLORIDE 102 mEq/L (97-110); CREATININE 0.6 mg/dL (0.6-1.0); GLOMERULAR FILTRATION RATE > 60; GLUCOSE 130 mg/dL (70-100); MAGNESIUM 1.8 mg/dL (1.6-2.3); POTASSIUM 4.1 mEq/L (3.5-5.2); SODIUM 140 mEq/L (134-144)
[2017-08-14 05:41] LABS: TROPONIN I < 0.012 ng/mL (0.000-0.034)
[2017-08-14] MEDS: ACETAMINOPHEN 325 MG TAB PO PRN (07:53)
[2017-08-14] MEDS: POTASSIUM CL 20 MEQ TAB PO SCH (07:53)
[2017-08-14] MEDS: METOPROLOL SUCCINATE XR 50 MG TAB PO SCH ×2 (07:54→19:57)
[2017-08-14] MEDS: FERROUS SULFATE 325 MG TAB PO SCH ×2 (07:55→19:59)
[2017-08-14] MEDS: PANTOPRAZOLE SODIUM 40 MG TAB PO SCH ×2 (07:55→19:59)
--- NOTE | 2017-08-14 08:54 | CPEKG ---
Heart Rate: 78 RR Interval: 769 QRSD Interval: 110 QT Interval: 380 QTC Interval: 433 QRS [place]: 101 T Wave [place]: 38 EKG Severity - ABNORMAL ECG - EKG Impression: ATRIAL FIBRILLATION/FLUTTER EKG Impression: INTERPOLATED VENTRICULAR PREMATURE COMPLEX EKG Impression: NONSPECIFIC INTRAVENTRICULAR CONDUCTION DELAY EKG Impression: No significant change from August 13, 2017, except for much slower rate Electronically Signed By: Maged Rabago 14-Aug-2017 09:34:29
[2017-08-14] MEDS: traMADol 50 MG TAB PO PRN ×2 (09:01→19:57)
--- NOTE | 2017-08-14 10:40 | ASMTCASEMG ---
Living Arrangements What is your living Answers: With Spouse arrangement? Who do you live with? Type Of Residence What kind of residence do Answers: House you live in? Discharge Plan Comments Coordination Status Comments Notes: Pt is a 52 y/o female admitted w/ chest pain. Pt is malian speaking. Pt will most likely d/c w/ supportive family when medically stable. No therapies ordered at this time. CM available for changes. Date Signed: 08/14/2017 10:39 AM Electronically Signed By:HERI Reyez
--- NOTE | 2017-08-14 12:05 | CPEKG ---
Heart Rate: 62 RR Interval: 968 QRSD Interval: 92 QT Interval: 396 QTC Interval: 402 QRS [place]: 92 T Wave [place]: 55 EKG Severity - ABNORMAL ECG - EKG Impression: ATRIAL FIBRILLATION/FLUTTER EKG Impression: BORDERLINE RIGHT AXIS DEVIATION EKG Impression: No significant change from August 14, 2017, 8:53 Electronically Signed By: Maged Rabago 14-Aug-2017 12:36:16
--- NOTE | 2017-08-14 14:33 | PDCARPN ---
Cardiology Progress Note Chief Complaint: PAF Assessment/Plan: Assessment: Eileen is a 52 y/o F followed by Dr. Orellana and last seen on 07/31/2017. She has a history of MS s/p balloon valvuloplasty at the [facility] in April 2015. She also has a history of multiple hospitalizations secondary to PAF with RVR. She was admitted to [facility] a few weeks ago for a perirectal abscess that required incision and drainage. Her Coumadin was held and she did go into a.fib during her hospitalization. A few days later she presented with abdominal and back pain and was found to have splenic and right renal infarct. She was started on Heparin drip and Coumadin was continued. A echo showed preserved LV function with mild MR and moderate LAE. A experimental technician was present. At the time of her office visit two weeks ago she was in a.fib with RVR. Toprol was titrated to 50mg BID. She went back into atrial fibrillation two days ago and presented to the hospital complaining of SOB and chest pain. A angiogram in showed normal coronaries in 2014 and a stress test one year ago was normal. Her troponin has remained negative x3. Plan: PAF with RVR- She has been admitted multiple times with a.fib despite AV liza blocking agents. Plan for LUCIA tomorrow to rule out left atrial appendage clot. If LUCIA is normal will begin Sotalol. She will remain on Coumadin. Her INR is currently supratherapeutic. Risks and benefits of the above plan were discussed with the patient via chucking lathe operator. 08/14/17 16:27 Subjective: Pt is complaining of intermittant CP and palpitations. Reviewed/Discussed With: hospitalist Objective: Vital Signs (8 Hrs) Temp Pulse Resp BP Pulse Ox 08/14/17 11:54 36.9 C 62 18 128/84 H 96 08/14/17 08:00 36.7 C 88 12 104/85 H 97 08/14/17 07:54 79 109/85 H Intake/Output (24 Hrs) 08/13/17 08/14/17 08/15/17 05:59 05:59 05:59 Intake Total 500 Output Total 200 Balance 300 Intake: Oral (ml) 500 Output: Urine (ml) 200 Toilet 200 Other: Weight 106.3 kg Number of Voids Toilet 1 tele- a.fib with occasional RVR Result Diagrams: 08/13/17 12:55 08/14/17 03:33 Cardiac Labs: Cardiac Lab Results (72 Hrs) 08/14/17 08/13/17 03:33 17:41 Troponin I < 0.012 < 0.012 - Physical Exam Constitutional: healthy appearing, no apparent distress Ears, Nose, Mouth, Throat: moist mucous membranes Cardiovascular: no murmurs, no rubs, no gallops, irregularly irregular Peripheral Pulses: 2+: dorsalis-pedis (R), dorsalis-pedis (L) Respiratory: clear to auscultate bilat, no crackles, no wheezes Gastrointestinal: normoactive bowel sounds, no tenderness, no masses Skin: no rashes, no edema Neurologic: AAOx3 ICD10 Worksheet Patient Problems: Problems Problem Status Onset Atrial fibrillation with rapid ventricular response Acute Chest pain Acute Abdominal pain Acute Afib Acute Cough Acute Mitral stenosis Acute Obesity Acute Urinary tract infection Acute
--- NOTE | 2017-08-14 18:47 | HOSPPROG ---
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 -chest pain felt to be due to a fib, is identical to her usual a fib pain; normal coronary angiography 2014 normal myocardial perfusion imaging 2015 -hx of mitral valvuloplasty and ongoing pulmonary HTN -recent surgery for perirectal abscess done at another hospital -chronic obesity PLANS: -continue current B Sue and dilt -LUCIA tomorrow and if no thrombi consider sotalol -will give a 1 mg dose of coumadin today to avoid her going too low, consider resuming coumadin tomorrow at 2 mg daily if INR in proper range, contnue close monitoring (not a good candidated for NOACs) -consider eventual ablation therapy eventually but would not consider now due to recent emboli I reviewed in detail today with Ana Archer of [facility] SUBJECTIVE: still some intermittent neck and chest pain typical fo that she gets with rapid a fib, otherwise feels fine, much better than yesterday OBJECTIVE: vitals: tachycardic, otherwise normal card monitor: a fib, still rapid but better rate control exam: alert oriented relaxed skin warm and dry no jvd lungs clear heart irreg tachy trace edema INR 3.6 Objective: Vital Signs Temp Pulse Resp BP Pulse Ox 36.8 C 66 12 119/77 95 08/14/17 16:05 08/14/17 16:05 08/14/17 16:05 08/14/17 16:05 08/14/17 16:05 Laboratory Results 08/14/17 03:33 08/13/17 08/14/17 08/15/17 06:59 06:59 06:59 Intake Total 500 Output Total 200 350 Balance 300 -350 PT 36.7 SEC (12.0-15.0) H 08/14/17 03:33 INR 3.62 (0.83-1.16) H 08/14/17 03:33 - Time Spent With Patient Time Spent with Patient: greater than 35 minutes Time Spent with Patient: Greater than 35 minutes spent on this patients care, greater than 50% of time spent counseling, educating, and coordinating care regarding the above mentioned plan. ICD10 Worksheet Patient Problems: Problems Problem Status Onset Atrial fibrillation with rapid ventricular response Acute Chest pain Acute Abdominal pain Acute Afib Acute Cough Acute Mitral stenosis Acute Obesity Acute Urinary tract infection Acute
[2017-08-14] MEDS ORDERED: WARFARIN SODIUM 1 MG TAB PO ONE (20:49)
[2017-08-14] MEDS: oxyCODONE IR 5 MG TAB PO PRN (21:44)
[2017-08-15] MEDS: traMADol 50 MG TAB PO PRN (04:33)
[2017-08-15 04:53] LABS: INR 3.39 (0.83-1.16); PROTIME(PATIENT) 34.8 SEC (12.0-15.0)
[2017-08-15] MEDS ORDERED: NS 1,000 ML IV ONE (06:00)
[2017-08-15] MEDS ORDERED: PROPOFOL 200 MG/20 ML VIAL ONE (09:34)
[2017-08-15] MEDS ORDERED: NALOXONE HCL 0.4 MG/ML INJ IVP PRN (09:50)
--- NOTE | 2017-08-15 09:50 | PDANEPAE ---
ANE Past Medical History - Cardiovascular History Hx Hypertension: Yes Hx Arrhythmias: Yes Hx Chest Pain: Yes Hx Coronary Artery / Peripheral Vascular Disease: No Hx CHF / Valvular Disease: Yes - Pulmonary History Hx COPD: No Hx Asthma/Reactive Airway Disease: No Hx Oxygen in Use at Home: Yes O2 in Use at Home (L/minute): 2.5 Hx Sleep Apnea: Yes - Endocrine History Hx Diabetes: No - Chronic Pain History Chronic Pain: Yes (migraines) ANE Review of Systems Review of Systems: ANE Patient History - Allergies Allergies/Adverse Reactions: No Known Allergies Allergy (Verified 08/13/17 12:34) - Home Medications Home Medications: Pantoprazole Sodium [Protonix 40mg (*)] 40 mg PO BID 06/12/16 [Last Taken ] Ferrous Sulfate [Ferrous Sulf 325 MG (*)] 325 mg PO BID 06/20/17 [Last Taken ] Potassium Cl [Klor-Con 20 meq (*)] 20 meq PO DAILY 06/20/17 [Last Taken 08/13/17 ] Sucralfate [Carafate 1 GM (*)] 1 gm PO HS 06/20/17 [Last Taken 08/12/17] Warfarin Sodium [Coumadin 2.5MG (*)] 2.5 mg PO DAILY16 06/20/17 [Last Taken ] Digoxin [Lanoxin 250 mcg (RX)] 250 mcg PO DAILY10 08/13/17 [Last Taken 08/13/17] Diltiazem HCl [Cartia Xt] 120 mg PO DAILY 08/13/17 [Last Taken 08/13/17] Metoprolol Succinate Xr [Toprol Xl 50 mg (*)] 50 mg PO BID 08/13/17 [Last Taken 08/13/17] - Smoking Hx Smoking Status: Never smoked ANE Labs/Vital Signs - Labs Result Diagrams: 08/13/17 12:55 08/14/17 03:33 - Vital Signs Blood Pressure: 111/82 Heart Rate: 62 Respiratory Rate: 16 O2 Sat (%): 95 Height: 154 cm Weight: 106.8 kg ANE Physical Exam - Airway Mallampati Score: Class 3 - Cardiovascular Cardiovascular: irregularly irregular - ASA Status ASA Status: III ANE Anesthesia Plan Total IV Anesthesia: Yes
--- NOTE | 2017-08-15 09:50 | PDHPUP ---
History & Physical Update H&P update statement: This history and physical update is based on an assessment of the patient which was completed after admission or registration (within 24 hours), but prior to the surgery/procedure. H&P update: H&P reviewed & patient examined, no change in patient's condition since H&P completed
--- NOTE | 2017-08-15 09:51 | POSTANESTH ---
Post Anesthetic Evaluation Respiratory Status: Normal, Stable Level of Consciousness/Mental Status: Can Participate in Eval Pain Control: Adequate, Prn Tx Ordered Nausea/Vomiting Control: Adequate, Prn Tx Ordered Complications Possibly Related to Anesthesia: None Noted
[2017-08-15] MEDS ORDERED: NS 500 ML IV ONE (09:53)
[2017-08-15] MEDS ORDERED: BENZOCAINE UNIT DOSE SPRAY HURRICAINE MM ONE (09:53)
[2017-08-15] MEDS ORDERED: fentaNYL 100 MCG/2 ML INJ IVP ONE (09:53)
[2017-08-15] MEDS ORDERED: ATROPINE SULFATE 1 MG/10 ML SYR IVP ONE (09:53)
[2017-08-15] MEDS ORDERED: MIDAZOLAM 2 MG/2 ML VIAL IVP ONE (09:53)
--- NOTE | 2017-08-15 09:57 | PDTEE1 ---
LUCIA Cardioversion Procedure Procedure: electrical cardioversion, transesophageal echo Indications: atrial fibrillation Consent: signed and in chart Anticoagulation: warfarin Procedural Details: Pads were placed in anterior-posterior position. LUCIA probe was advanced and standard images obtained. There is no evidence of left atrial or left atrial appendage thrombus. Synchronized cardioversion attempt #1: 200J Results: normal sinus rhythm Conclusions: successful LUCIA cardioversion Patient Problems: Problems Problem Status Onset Atrial fibrillation with rapid ventricular response Acute Chest pain Acute Abdominal pain Acute Afib Acute Cough Acute Mitral stenosis Acute Obesity Acute Urinary tract infection Acute
--- NOTE | 2017-08-15 10:02 | CPEKG ---
Heart Rate: 62 RR Interval: 968 P-R Interval: 160 QRSD Interval: 88 QT Interval: 388 QTC Interval: 394 P [place]: 48 QRS [place]: 103 T Wave [place]: 38 EKG Severity - ABNORMAL ECG - EKG Impression: SINUS RHYTHM EKG Impression: PROBABLE RIGHT VENTRICULAR HYPERTROPHY EKG Impression: Possible biatrial abnormality EKG Impression: Resolution of atrial fibrillation/flutter since August 14, 2017 Electronically Signed By: Maged Rabago 15-Aug-2017 10:54:56
--- NOTE | 2017-08-15 10:38 | PDCARPN ---
Cardiology Progress Note Assessment/Plan: Paroxysmal Atrial Fibrillation- h/o recurrent persistent episodes. LUCIA today negative for left atrial thrombus. Cardioversion was successful in restoring normal sinus rhythm. Will now start sotalol 80 mg PO BID. Continue systemic anticoagulation. Valvular Heart Disease- s/p balloon mitral valvuloplasty at [facility] in 2014. LUCIA today demonstrated the mitral valve opening and mild to moderate MR. Chronic Diastolic CHF- currently volume compensated. 08/15/17 10:35 Subjective: No complaints. Reviewed/Discussed With: family Objective: Vital Signs (8 Hrs) Temp Pulse Resp BP Pulse Ox 08/15/17 09:50 62 16 111/82 H 95 08/15/17 04:00 36.6 C 62 16 111/82 H 95 Intake/Output (24 Hrs) 08/14/17 08/15/17 08/16/17 05:59 05:59 05:59 Intake Total 500 517.5 Output Total 200 350 Balance 300 167.5 Intake: Oral (ml) 500 500 IV Infused (ml) 17.5 Diltiazem 125 mg In D5w 17.5 125 ml @ Per Protocol IV CONT DEMETRI Rx#:[id number] Output: Urine (ml) 200 350 Toilet 200 350 Other: Weight 106.3 kg 106.8 kg 106.8 kg Output Comment Toilet urine more concentrated this morning early Number of Voids Toilet 1 2 Result Diagrams: 08/13/17 12:55 08/14/17 03:33 Cardiac Labs: Cardiac Lab Results (72 Hrs) 08/14/17 08/13/17 03:33 17:41 Troponin I < 0.012 < 0.012 - Physical Exam Constitutional: no apparent distress, obese Eyes: anicteric sclera Ears, Nose, Mouth, Throat: moist mucous membranes Cardiovascular: no murmurs, irregularly irregular Respiratory: clear to auscultate bilat Gastrointestinal: normoactive bowel sounds, no masses Skin: no rashes, no edema Neurologic: AAOx3 Psychiatric: not anxious ICD10 Worksheet Patient Problems: Problems Problem Status Onset Atrial fibrillation with rapid ventricular response Acute Chest pain Acute Abdominal pain Acute Afib Acute Cough Acute Mitral stenosis Acute Obesity Acute Urinary tract infection Acute
[2017-08-15] MEDS: SOTALOL HCL 80 MG TAB PO SCH ×2 (11:11→20:59)
[2017-08-15] MEDS: PANTOPRAZOLE SODIUM 40 MG TAB PO SCH ×2 (11:11→20:59)
[2017-08-15] MEDS: POTASSIUM CL 20 MEQ TAB PO SCH (11:12)
[2017-08-15] MEDS: FERROUS SULFATE 325 MG TAB PO SCH ×2 (11:12→20:59)
--- NOTE | 2017-08-15 13:30 | CPEKG ---
Heart Rate: 60 RR Interval: 1000 P-R Interval: 152 QRSD Interval: 88 QT Interval: 396 QTC Interval: 396 P [place]: 23 QRS [place]: 96 T Wave [place]: 33 EKG Severity - OTHERWISE NORMAL ECG - EKG Impression: SINUS RHYTHM EKG Impression: BORDERLINE RIGHT AXIS DEVIATION EKG Impression: POSSIBLE LEFT ATRIAL ABNORMALITY. EKG Impression: NO SIGNIFICANT CHANGE FROM AUGUST 15, 2017, 10:00 Electronically Signed By: Maged Rabago 15-Aug-2017 13:37:24
--- NOTE | 2017-08-15 14:48 | HOSPPROG ---
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 no sob Objective: Vital Signs Temp Pulse Resp BP Pulse Ox 36.4 C 69 18 127/87 H 90 L 08/15/17 12:37 08/15/17 12:37 08/15/17 12:37 08/15/17 12:37 08/15/17 12:37 Laboratory Results 08/14/17 03:33 08/14/17 08/15/17 08/16/17 05:59 05:59 05:59 Intake Total 500 517.5 Output Total 200 350 Balance 300 167.5 PT 34.8 SEC (12.0-15.0) H 08/15/17 03:45 INR 3.39 (0.83-1.16) H 08/15/17 03:45 - Physical Exam Constitutional: no apparent distress, appears nourished, not in pain Cardiovascular: regular rate and rhythym, no murmur, rub, or gallop Respiratory: no respiratory distress, no rales or rhonchi, clear to auscultation Skin: no rashes or abrasions, no fluctuance, no induration Neurologic: AAOx3, CN II-XII Intact, No facial droop ICD10 Worksheet Patient Problems: Problems Problem Status Onset Chest pain Acute Cough Acute Obesity Acute Mitral stenosis Acute Afib Acute Atrial fibrillation with rapid ventricular response Acute Abdominal pain Acute Urinary tract infection Acute
--- NOTE | 2017-08-15 15:41 | PDMN ---
Medical Necessity Medical necessity: Patient meets INPT criteria per physician note and [facility] Cardiology GRG (long hx of atrial fib w/RVR, recent splenic and R kidney infarcts in Jun p Coumadin stopped for perirectal abscess surgery; supratherapeutic INR of 4.1 on admission; on IV diltiazem until successful LUCIA cardioversion 08/15; started on sotalol and will require > 2 midnights LOS for telemetry, monitoring of INR w/Coumadin restart.)
--- NOTE | 2017-08-15 15:57 | ECHO ---
[email or web address] [address] [address] Main: [phone] Fax: Transesophageal Echocardiography Name: CHARLES ALLAN MR#: [id number] Study Date: 08/15/2017 Study Time: 08:58 AM Date of : 1965 Age: 52 year(s) Height: ( ) Weight: ( ) BSA: Gender: Female Examination: LUCIA Indication: Pre Cardioversion Image Quality: Contrast: Requested by: Ana Archer Heart Rate: Rhythm: BP: / Procedure Staff Research Development Manager: Kartik Long Reading Physician: Bridger Harris Requesting Provider: LUCIA Exam Details Conclusions: Normal global systolic LV function. No regional wall motion abnormality. An agitated saline study was performed and was negative for intracardiac shunting. No thrombus in left appendage. There is mild thickening of the mitral valve leaflets. Post mitral valve balloon valvuloplasty. Mild to moderate mitral regurgitation. No mitral stenosis is present. Mild tricuspid regurgitation is present. Successful cardioversion performed immediately after this procedure. Measurements: Chambers Valvular Assessment AV/MV Valvular Assessment TV/PV Normal Normal Normal Name Value Range Name Value Range Name Value Range Additional Measurements: Findings: Left Ventricle: Normal global systolic LV function. No regional wall motion abnormality. Right Ventricle: Normal size right ventricle. Normal RV function. Patient: CHARLES ALLAN Study Date: 08/15/2017 Page 1 of 2 08:58 AM Left Atrium: An agitated saline study was performed and was negative for intracardiac shunting. Left Atrial Appendage: No thrombus in left appendage. Mitral Valve: There is mild thickening of the mitral valve leaflets. Post mitral valve balloon valvuloplasty. Mild to moderate mitral regurgitation. No mitral stenosis is present. Aortic Valve: The aortic valve is normal in appearance and function. The aortic valve is tri-leaflet. There is no aortic valve regurgitation. No aortic valve stenosis is present. Tricuspid Valve: The tricuspid valve is normal in appearance and function. Mild tricuspid regurgitation is present. Pericardium: No pericardial effusion. l1n (No Signature Object) Patient: CHARLES ALLAN Study Date: 08/15/2017 Page 2 of 2 08:58 AM [id number]
[2017-08-15 17:15] LABS: ANION GAP 7 mEq/L (8-16); CALCIUM 8.4 mg/dL (8.5-10.4); CARBON DIOXIDE 27 mEq/l (22-31); CHLORIDE 103 mEq/L (97-110); CREATININE 0.7 mg/dL (0.6-1.0); GLOMERULAR FILTRATION RATE > 60; GLUCOSE 116 mg/dL (70-100); MAGNESIUM 1.9 mg/dL (1.6-2.3); POTASSIUM 4.2 mEq/L (3.5-5.2); SODIUM 137 mEq/L (134-144)
--- NOTE | 2017-08-16 00:52 | CPEKG ---
Heart Rate: 63 RR Interval: 952 P-R Interval: 152 QRSD Interval: 88 QT Interval: 416 QTC Interval: 426 P [place]: 22 QRS [place]: 93 T Wave [place]: 41 EKG Severity - OTHERWISE NORMAL ECG - EKG Impression: SINUS RHYTHM EKG Impression: BORDERLINE RIGHT AXIS DEVIATION Electronically Signed By: Purnima Price 16-Aug-2017 07:36:06
[2017-08-16] MEDS: ACETAMINOPHEN 325 MG TAB PO PRN ×2 (01:02→14:14)
[2017-08-16 03:59] LABS: INR 3.2 (0.83-1.16); PROTIME(PATIENT) 33.2 SEC (12.0-15.0)
--- NOTE | 2017-08-16 08:11 | PDCARPN ---
Cardiology Progress Note Chief Complaint: PAF Assessment/Plan: Assessment: Eileen is a 52 y/o F followed by Dr. Orellana and last seen on 07/31/2017. She has a history of MS s/p balloon valvuloplasty at the [place] in April 2015. She also has a history of multiple hospitalizations secondary to PAF with RVR. She was admitted to [facility] a few weeks ago for a perirectal abscess that required incision and drainage. Her Coumadin was held and she did go into a.fib during her hospitalization. A few days later she presented with abdominal and back pain and was found to have splenic and right renal infarct. She was started on Heparin drip and Coumadin was continued. A echo showed preserved LV function with mild MR and moderate LAE. A photo graphics librarian was present. At the time of her office visit two weeks ago she was in a.fib with RVR. Toprol was titrated to 50mg BID. She went back into atrial fibrillation two days ago and presented to the hospital complaining of SOB and chest pain. A angiogram in showed normal coronaries in 2014 and a stress test one year ago was normal. Her troponin has remained negative x3. Plan: PAF with RVR- She has been admitted multiple times with a.fib despite AV liza blocking agents. She is s/p LUCIA CV by Dr. Harris and started on Sotalol 80mg BID. She has remained in NSR and is tolerating Sotalol well. Her QTc has remained wnl (436 this AM). Continue Coumadin with INR goal of 2-3. HTN- well controlled on her current medical regimen. DCHF- gained two pounds but has been off of Lasix. Lasix resumed today. 08/16/17 08:37 Subjective: PT is complaining of 2 pound weight gain and feeling swollen in her hands. She has a mild headache. She denies any palpitations or SOB. She has mild CP but nothing like what she was experiencing before. Objective: Vital Signs (8 Hrs) Temp Pulse Resp BP Pulse Ox 08/16/17 07:12 91 L 08/16/17 07:10 36.8 C 69 17 109/64 85 L 08/16/17 04:00 36.9 C 60 16 93/64 L 97 Intake/Output (24 Hrs) 08/15/17 08/16/17 08/17/17 05:59 05:59 05:59 Intake Total 850 Output Total 1450 Balance -600 Intake: Oral (ml) 850 Output: Urine (ml) 1450 Toilet 1450 Other: Weight 107.6 kg Number of Voids Toilet 2 NSR Result Diagrams: 08/13/17 12:55 08/16/17 07:25 EKG: NSR with QTc wnl - Physical Exam Constitutional: healthy appearing, no apparent distress Ears, Nose, Mouth, Throat: moist mucous membranes Cardiovascular: regular rate and rhythm, no murmurs, no rubs, no gallops Respiratory: clear to auscultate bilat, no crackles, no wheezes Skin: no edema Neurologic: AAOx3 ICD10 Worksheet Patient Problems: Problems Problem Status Onset Atrial fibrillation with rapid ventricular response Acute Chest pain Acute Abdominal pain Acute Afib Acute Cough Acute Mitral stenosis Acute Obesity Acute Urinary tract infection Acute
[2017-08-16 08:19] LABS: ANION GAP 12 mEq/L (8-16); CALCIUM 8.5 mg/dL (8.5-10.4); CARBON DIOXIDE 27 mEq/l (22-31); CHLORIDE 102 mEq/L (97-110); CREATININE 0.7 mg/dL (0.6-1.0); GLOMERULAR FILTRATION RATE > 60; GLUCOSE 120 mg/dL (70-100); POTASSIUM 4.1 mEq/L (3.5-5.2); SODIUM 141 mEq/L (134-144)
--- NOTE | 2017-08-16 08:26 | CPEKG ---
Heart Rate: 70 RR Interval: 857 P-R Interval: 136 QRSD Interval: 84 QT Interval: 404 QTC Interval: 436 P [place]: 18 QRS [place]: 95 T Wave [place]: 37 EKG Severity - OTHERWISE NORMAL ECG - EKG Impression: SINUS RHYTHM EKG Impression: BORDERLINE RIGHT AXIS DEVIATION EKG Impression: POSSIBLE LEFT ATRIAL ABNORMALITY EKG Impression: NO SIGNIFICANT CHANGE FROM AUGUST 16, 2017 0:47 Electronically Signed By: Maged Rabago 16-Aug-2017 08:35:12
[2017-08-16] MEDS: FERROUS SULFATE 325 MG TAB PO SCH ×2 (09:08→21:13)
[2017-08-16] MEDS: SOTALOL HCL 80 MG TAB PO SCH ×2 (09:09→21:13)
[2017-08-16] MEDS: FUROSEMIDE 40 MG TAB PO SCH (09:09)
[2017-08-16] MEDS: POTASSIUM CL 20 MEQ TAB PO SCH (09:09)
[2017-08-16] MEDS: PANTOPRAZOLE SODIUM 40 MG TAB PO SCH ×2 (09:09→21:13)
--- NOTE | 2017-08-16 11:24 | CPEKG ---
Heart Rate: 69 RR Interval: 870 P-R Interval: 160 QRSD Interval: 88 QT Interval: 380 QTC Interval: 407 P [place]: 29 QRS [place]: 96 T Wave [place]: 22 EKG Severity - OTHERWISE NORMAL ECG - EKG Impression: SINUS RHYTHM EKG Impression: RIGHT AXIS DEVIATION EKG Impression: POSSIBLE LEFT ATRIAL ABNORMALITY. EKG Impression: NO SIGNIFICANT CHANGE FROM AUGUST 16, 2017, 8:24 Electronically Signed By: Maged Rabago 16-Aug-2017 11:42:15
[2017-08-16] MEDS: oxyCODONE IR 5 MG TAB PO PRN (12:43)
--- NOTE | 2017-08-16 13:43 | CPEKG ---
Heart Rate: 60 RR Interval: 1000 P-R Interval: 144 QRSD Interval: 84 QT Interval: 428 QTC Interval: 428 P [place]: -4 QRS [place]: 96 T Wave [place]: 43 EKG Severity - BORDERLINE ECG - EKG Impression: SINUS RHYTHM EKG Impression: POSSIBLE LEFT ATRIAL ABNORMALITY EKG Impression: RIGHT AXIS DEVIATION EKG Impression: NO SIGNIFICANT CHANGE SINCE AUGUST 16, 2017, 11:21 Electronically Signed By: Maged Rabago 17-Aug-2017 08:13:17
[2017-08-16] MEDS ORDERED: NITROGLYCERIN 0.4 MG BTL SL PRN (13:48)
--- NOTE | 2017-08-16 13:48 | HOSPPROG ---
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 some shortness of breath Objective: Vital Signs Temp Pulse Resp BP Pulse Ox 36.8 C 64 17 106/69 91 L 08/16/17 07:10 08/16/17 12:28 08/16/17 07:10 08/16/17 12:28 08/16/17 07:12 Laboratory Results 08/16/17 07:25 08/15/17 08/16/17 08/17/17 05:59 05:59 05:59 Intake Total 850 Output Total 1450 Balance -600 PT 33.2 SEC (12.0-15.0) H 08/16/17 03:15 INR 3.20 (0.83-1.16) H 08/16/17 03:15 - Physical Exam Constitutional: uncomfortable Cardiovascular: regular rate and rhythym, no murmur, rub, or gallop Respiratory: no respiratory distress, no rales or rhonchi, clear to auscultation Gastrointestinal: normoactive bowel sounds, soft, non-tender abdomen, no palpable masses, No guarding, No rebound Skin: no rashes or abrasions, no fluctuance, no induration Musculoskeletal: full muscle strength, no muscle tenderness, normal joint ROM, other (no pain over ant chest wall with palpation) Neurologic: AAOx3, sensation intact bilaterally ICD10 Worksheet Patient Problems: Problems Problem Status Onset Chest pain Acute Cough Acute Obesity Acute Mitral stenosis Acute Afib Acute Atrial fibrillation with rapid ventricular response Acute Abdominal pain Acute Urinary tract infection Acute
[2017-08-16] MEDS ORDERED: IOPAMIDOL (ISOVUE 370) 100 ML BTL IV ONE (13:52)
[2017-08-17 05:09] LABS: INR 2.27 (0.83-1.16); PROTIME(PATIENT) 25.2 SEC (12.0-15.0)
[2017-08-17] MEDS: ACETAMINOPHEN 325 MG TAB PO PRN ×2 (07:38→23:03)
[2017-08-17] MEDS: SOTALOL HCL 80 MG TAB PO SCH ×2 (09:38→21:08)
[2017-08-17] MEDS: FUROSEMIDE 40 MG TAB PO SCH (09:38)
[2017-08-17] MEDS: FERROUS SULFATE 325 MG TAB PO SCH ×2 (09:38→21:07)
[2017-08-17] MEDS: POTASSIUM CL 20 MEQ TAB PO SCH (09:38)
[2017-08-17] MEDS: PANTOPRAZOLE SODIUM 40 MG TAB PO SCH ×2 (09:39→21:08)
--- NOTE | 2017-08-17 10:52 | SOAPPROG ---
SOHERIBERTO Progress Note Assessment/Plan: Assessment: 1. Persistent atrial fibrillation s/p cardioversion; Loading with sotalol. 2. Valvular heart disease s/p mitral balloon valvuloplasty Impression: Successful cardioversion. Maintaining sinus on sotalol without complications. -Continue sotalol for rate and rhythm control -Appropriately anticoagulated. -Home tomorrow. -cardiac rehabilitation. Up walking. 08/17/17 10:49 Subjective: Feeling well. No cp. No sob,pnd,orthopnea. No further palpitations. Up walking some. Objective: Medications Generic Name Dose Route Start Last Admin Trade Name Aline PRN Reason Stop Dose Admin Furosemide 40 mg 08/16/17 09:00 08/17/17 09:38 Lasix PO 02/12/18 08:59 40 mg DAILY [facility] Sotalol HCl 80 mg 08/15/17 10:00 08/17/17 09:38 Betapace PO 02/11/18 09:59 80 mg BID [facility] Warfarin Sodium 1 ea 08/15/17 15:00 08/16/17 15:33 Message-Coumadin Daily Order [facility] 02/11/18 14:59 Not Given DAILY@1500 [facility] Warfarin Sodium 1 each 08/15/17 15:00 Warfarin Pharmacy To Dose [facility] 02/11/18 14:59 AD [facility] Protocol Vital Signs Temp Pulse Resp BP Pulse Ox 36.9 C 63 18 137/100 H 95 08/17/17 07:11 08/17/17 09:38 08/17/17 07:11 08/17/17 09:38 08/17/17 07:11 Laboratory Results 08/16/17 07:25 08/16/17 08/17/17 08/18/17 05:59 05:59 05:59 Intake Total 850 1650 Output Total 1450 2600 Balance -600 -950 PT 25.2 SEC (12.0-15.0) H D 08/17/17 03:51 INR 2.27 (0.83-1.16) H 08/17/17 03:51 Physical Exam - Physical Exam General Appearance: no apparent distress EENT: PERRL/EOMI Neck: non-tender, full range of motion Respiratory: normal breath sounds Cardiac/Chest: normal peripheral pulses, regular rate, rhythm, No edema Abdomen: normal bowel sounds, non-tender, soft Back: Normal inspection Skin: normal color, warm/dry Lymphatic: no adenopathy Extremities: normal range of motion, non-tender, No pedal edema, No calf tenderness Neuro/Psych: no motor/sensory deficits, alert, normal mood/affect ICD10 Worksheet Patient Problems: Problems Problem Status Onset Chest pain Acute Cough Acute Obesity Acute Mitral stenosis Acute Afib Acute Atrial fibrillation with rapid ventricular response Acute Abdominal pain Acute Urinary tract infection Acute History of Present Illness - General Stated Complaint: HR 150 on EKG at [facility]; pain chest to hannah since yesterday Initial Vital Signs: Initial Vital Signs Temperature (C) 37 C 08/13/17 12:20 Heart Rate 88 08/13/17 12:20 Respiratory Rate 18 08/13/17 12:20 Blood Pressure 144/77 H 08/13/17 12:20 O2 Sat (%) 92 08/13/17 12:20 O2 Delivery Mode Nasal Cannula O2 (L/minute) 2 Allergies/Adverse Reactions: No Known Allergies Allergy (Verified 08/13/17 12:34) Home Medications: Medication Instructions Recorded Pantoprazole Sodium [Protonix 40mg 40 mg PO BID 06/12/16 (*)] Ferrous Sulfate [Ferrous Sulf 325 325 mg PO BID 06/20/17 MG (*)] Potassium Cl [Klor-Con 20 meq (*)] 20 meq PO DAILY 06/20/17 Sucralfate [Carafate 1 GM (*)] 1 gm PO HS 06/20/17 Warfarin Sodium [Coumadin 2.5MG 2.5 mg PO DAILY16 06/20/17 (*)] Digoxin [Lanoxin 250 mcg (RX)] 250 mcg PO DAILY10 08/13/17 Diltiazem HCl [Cartia Xt] 120 mg PO DAILY 08/13/17 Metoprolol Succinate Xr [Toprol Xl 50 mg PO BID 08/13/17 50 mg (*)] Review of Systems - Review of Systems Constitutional: no symptoms reported EENTM: no symptoms reported Respiratory: no symptoms reported Cardiac: no symptoms reported Gastrointestinal/Abdominal: no symptoms reported Genitourinary: no symptoms Musculoskelatal: no symptoms Skin: no symptoms Neurological: no symptoms Hematologic/Lymphatic: no symptoms reported Immunologic/allergic: no symptoms reported All Other Systems: Reviewed and Negative
--- NOTE | 2017-08-17 11:46 | CPEKG ---
Heart Rate: 58 RR Interval: 1034 P-R Interval: 152 QRSD Interval: 90 QT Interval: 452 QTC Interval: 445 P [place]: 13 QRS [place]: 87 T Wave [place]: 51 EKG Severity - NORMAL ECG - EKG Impression: SINUS RHYTHM Electronically Signed By: Chris Hebert 18-Aug-2017 08:39:56
--- NOTE | 2017-08-17 13:43 | HOSPPROG ---
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 no sob Objective: Vital Signs Temp Pulse Resp BP Pulse Ox 36.9 C 59 L 16 97/69 L 91 L 08/17/17 11:04 08/17/17 11:04 08/17/17 11:04 08/17/17 11:04 08/17/17 11:04 Laboratory Results 08/16/17 07:25 08/16/17 08/17/17 08/18/17 05:59 05:59 05:59 Intake Total 850 1650 Output Total 1450 2600 Balance -600 -950 PT 25.2 SEC (12.0-15.0) H D 08/17/17 03:51 INR 2.27 (0.83-1.16) H 08/17/17 03:51 tele reviewed - Physical Exam Constitutional: no apparent distress, appears nourished, not in pain Ears, Nose, Mouth, Throat: moist mucous membranes, hearing normal, ears appear normal, no oral mucosal ulcers Cardiovascular: regular rate and rhythym, no murmur, rub, or gallop Respiratory: no respiratory distress, no rales or rhonchi, clear to auscultation Gastrointestinal: normoactive bowel sounds, soft, non-tender abdomen, no palpable masses Neurologic: AAOx3, sensation intact bilaterally ICD10 Worksheet Patient Problems: Problems Problem Status Onset Chest pain Acute Cough Acute Obesity Acute Mitral stenosis Acute Afib Acute Atrial fibrillation with rapid ventricular response Acute Abdominal pain Acute Urinary tract infection Acute
[2017-08-17] MEDS ORDERED: WARFARIN SODIUM 2.5 MG TAB PO ONE (16:00)
--- NOTE | 2017-08-17 23:26 | CPEKG ---
Heart Rate: 56 RR Interval: 1071 P-R Interval: 144 QRSD Interval: 92 QT Interval: 468 QTC Interval: 452 P [place]: 0 QRS [place]: 94 T Wave [place]: 62 EKG Severity - BORDERLINE ECG - EKG Impression: SINUS RHYTHM EKG Impression: BORDERLINE RIGHT AXIS DEVIATION EKG Impression: BORDERLINE T ABNORMALITIES, ANT-LAT LEADS Electronically Signed By: Chris Hebert 18-Aug-2017 08:40:15
[2017-08-18 04:36] LABS: INR 1.65 (0.83-1.16); PROTIME(PATIENT) 19.6 SEC (12.0-15.0)
[2017-08-18] MEDS: FERROUS SULFATE 325 MG TAB PO SCH (09:40)
[2017-08-18] MEDS: FUROSEMIDE 40 MG TAB PO SCH (09:40)
[2017-08-18] MEDS: SOTALOL HCL 80 MG TAB PO SCH (09:40)
[2017-08-18] MEDS: POTASSIUM CL 20 MEQ TAB PO SCH (09:40)
[2017-08-18] MEDS: PANTOPRAZOLE SODIUM 40 MG TAB PO SCH (09:41)
--- NOTE | 2017-08-18 09:58 | SOAPPROG ---
[facility] Progress Note Assessment/Plan: Assessment: 1. Persistent atrial fibrillation s/p cardioversion; Loading with sotalol. 2. Valvular heart disease s/p mitral balloon valvuloplasty 08/18/17 09:55 Impression: Continue to maintain sinus rhythm. Tolerating sotalol without complications. Discharge home follow up Dr. Orellana 1 week. Appropriately anticoagulated and rate controlled. 08/17/17 10:49 Impression: Successful cardioversion. Maintaining sinus on sotalol without complications. -Continue sotalol for rate and rhythm control -Appropriately anticoagulated. -Home tomorrow. -cardiac rehabilitation. Up walking. Subjective: Uneventful night. No palpitations, shortness of breath, syncope. Persistent focal chest pain in the left precordium. Objective: Medications Generic Name Dose Route Start Last Admin Trade Name Aline PRN Reason Stop Dose Admin Warfarin Sodium 1 each 08/15/17 15:[address] Dose [facility] [place] 02/11/18 14:59 AD [facility] Protocol Furosemide 40 mg 08/16/17 09:00 08/18/17 09:40 Lasix PO 02/12/18 08:59 40 mg DAILY [facility] Sotalol HCl 80 mg 08/15/17 10:00 08/18/17 09:40 Betapace PO 02/11/18 09:59 80 mg BID [facility] Warfarin Sodium 1 ea 08/15/17 15:00 08/17/17 14:20 Message-Coumadin Daily Order [facility] [place] 02/11/18 14:59 Not Given DAILY@1500 [facility] Vital Signs Temp Pulse Resp BP Pulse Ox 36.5 C 57 L 16 108/63 95 08/18/17 07:18 08/18/17 07:18 08/18/17 07:18 08/18/17 07:18 08/18/17 07:18 Laboratory Results 08/16/17 07:25 08/17/17 08/18/17 08/19/17 05:59 05:59 05:59 Intake Total 1650 2250 Output Total 2600 3000 Balance -950 -750 PT 19.6 SEC (12.0-15.0) H 08/18/17 03:37 INR 1.65 (0.83-1.16) H 08/18/17 03:37 Physical Exam - Physical Exam General Appearance: alert, no apparent distress Neck: full range of motion, supple Respiratory: chest non-tender, lungs clear Cardiac/Chest: regular rate, rhythm Abdomen: normal bowel sounds, non-tender, soft Skin: normal color, warm/dry Extremities: No pedal edema ICD10 Worksheet Patient Problems: Problems Problem Status Onset Chest pain Acute Cough Acute Obesity Acute Mitral stenosis Acute Afib Acute Atrial fibrillation with rapid ventricular response Acute Abdominal pain Acute Urinary tract infection Acute Review of Systems - Review of Systems Constitutional: denies: chills, fever EENTM: no symptoms reported Respiratory: no symptoms reported Cardiac: chest pain. denies: edema, irregular heart rate, lightheadedness, palpitations, syncope Gastrointestinal/Abdominal: no symptoms reported Genitourinary: no symptoms Musculoskelatal: no symptoms Skin: no symptoms Neurological: no symptoms Hematologic/Lymphatic: no symptoms reported Immunologic/allergic: no symptoms reported
[2017-08-18 11:24] VITALS: BP 119/76; PULSE 61; RESP 14; TEMP 97.6; O2SAT 91
--- NOTE | 2017-08-18 11:43 | ASMTCMCOM ---
CM Note CM Note Notes: Per cardiology note, patient likely to discharge home tomorrow. He recommends cardiac rehab. I spoke with Femi @ cardiac rehab who says that patient will have to pay $7 per session (she's uninsured). Dr Linares will also have to write an order since her dx does not automatically trigger a cardiac rehab consult. CM will f/u tomorrow to ensure that patient is set up for cardiac rehab if she chooses to do it. Date Signed: 08/18/2017 11:42 AM Electronically Signed By:Valerie Hope RN
[2017-08-18] MEDS ORDERED: ENOXAPARIN 100 MG/ML SYR SC SCH (12:15)
--- NOTE | 2017-08-18 12:17 | CPEKG ---
Heart Rate: 60 RR Interval: 1000 P-R Interval: 152 QRSD Interval: 86 QT Interval: 440 QTC Interval: 440 P [place]: 13 QRS [place]: 94 T Wave [place]: 66 EKG Severity - BORDERLINE ECG - EKG Impression: SINUS RHYTHM EKG Impression: BORDERLINE RIGHT AXIS DEVIATION EKG Impression: BORDERLINE T ABNORMALITIES, ANT-LAT LEADS Electronically Signed By: Chris Hebert 19-Aug-2017 09:59:17
--- NOTE | 2017-08-18 12:19 | HOSPPROG ---
Hospitalist Progress Note Assessment/Plan: 52 yo F w AF s/p cardioversion and sotalol load home today [facility] follow up see dc summary > 30 minutes Subjective: in sinus. ready for dc Objective: Vital Signs Temp Pulse Resp BP Pulse Ox 36.4 C 61 14 119/76 91 L 08/18/17 11:22 08/18/17 11:22 08/18/17 11:22 08/18/17 11:22 08/18/17 11:22 Laboratory Results 08/16/17 07:25 08/17/17 08/18/17 08/19/17 05:59 05:59 05:59 Intake Total 1650 2250 Output Total 2600 3000 Balance -950 -750 PT 19.6 SEC (12.0-15.0) H 08/18/17 03:37 INR 1.65 (0.83-1.16) H 08/18/17 03:37 - Physical Exam Constitutional: no apparent distress, appears nourished Eyes: PERRL, anicteric sclera Ears, Nose, Mouth, Throat: moist mucous membranes, hearing normal Cardiovascular: regular rate and rhythym, no murmur, rub, or gallop Respiratory: no respiratory distress, no rales or rhonchi Gastrointestinal: normoactive bowel sounds, soft, non-tender abdomen Genitourinary: no bladder fullness, No conner in urethra Skin: warm, normal color Musculoskeletal: full muscle strength, no muscle tenderness Neurologic: AAOx3 ICD10 Worksheet Patient Problems: Problems Problem Status Onset Atrial fibrillation with rapid ventricular response Acute Chest pain Acute Abdominal pain Acute Afib Acute Cough Acute Mitral stenosis Acute Obesity Acute Urinary tract infection Acute
--- NOTE | 2017-08-18 13:10 | GDS ---
[f rep st] DISCHARGE SUMMARY DISCHARGE DIAGNOSES: 1. Atrial fibrillation. 2. History of peripheral emboli, attributable to atrial fibrillation. 3. Diastolic heart failure. 4. Mitral valve stenosis with valvuloplasty in 2014. 5. History of pericarditis. 6. Migraine headaches. 7. History of chest pain. HOSPITAL COURSE: Procedures, LUCIA cardioversion performed on the , as well as sotalol load. She was also ruled out for pulmonary embolism on the , given her ongoing chest pain; this is normal. The patient is admitted with atrial fibrillation, LUCIA cardioversion, and then started on sotalol. Annemarie mcghee is discharged home with sotalol and a low-molecular weight heparin bridge, because her INR is 1.65. She has had episodes of renal and splenic infarcts in the recent past. She is discharged home. DISCHARGE MEDICATIONS: New medications are: Sotalol and low-molecular heparin. Discontinued medications: Diltiazem and metoprolol and digoxin. /[id number]/MODL
--- NOTE | 2017-08-18 14:29 | CPEKG ---
Heart Rate: 66 RR Interval: 909 P-R Interval: 152 QRSD Interval: 90 QT Interval: 412 QTC Interval: 432 P [place]: 50 QRS [place]: 100 T Wave [place]: 63 EKG Severity - BORDERLINE ECG - EKG Impression: SINUS RHYTHM EKG Impression: RIGHT AXIS DEVIATION EKG Impression: BORDERLINE T ABNORMALITIES, ANT-LAT LEADS Electronically Signed By: Chris Hebert 19-Aug-2017 09:59:04
[2017-08-18] MEDS ORDERED: WARFARIN SODIUM 2.5 MG TAB PO SCH (16:00)
--- NOTE | 2017-08-19 16:05 | ASDISCHSUM ---
Discharge Information Plan Status:Home with No Needs Medically Cleared to Leave:08/19/2017 Discharge Date:08/18/2017 02:30 PM CM D/C Disposition: ADT D/C Disposition:Home, Routine, Self-Care Projected Discharge Date:08/19/2017 12:00 AM Transportation at D/C: Discharge Delay Reason: Follow-Up Date:08/19/2017 12:00 AM Discharge Slot: Final Diagnosis: Placement Information Patient Contact Information Contact Name:MINA Relationship: Address:[address] City:[place] Alternate Phone: [facility]/Zip Code:[place] [address] Email: Financial Information Financial Class:Self-Pay Primary Plan Desc:WE CARE Primary Plan Number:99 Secondary Plan Desc: Secondary Plan Number: Assessment Information [facility] Initial CM Assessment Living Arrangements What is your living Answers: With Spouse arrangement? Who do you live with? Type Of Residence What kind of residence do Answers: House you live in? Discharge Plan Comments Coordination Status Comments Notes: Pt is a 52 y/o female admitted w/ chest pain. Pt is cook islander speaking. Pt will most likely d/c w/ supportive family when medically stable. No therapies ordered at this time. CM available for changes. Date Signed: 08/14/2017 10:39 AM Electronically Signed By:HERI Reyez [facility] CM Progress Note CM Note CM Note Notes: Per cardiology note, patient likely to discharge home tomorrow. He recommends cardiac rehab. I spoke with Femi @ cardiac rehab who says that patient will have to pay $7 per session (she's uninsured). Dr Linares will also have to write an order since her dx does not automatically trigger a cardiac rehab consult. CM will f/u tomorrow to ensure that patient is set up for cardiac rehab if she chooses to do it. Date Signed: 08/18/2017 11:42 AM Electronically Signed By:Valerie Hope RN Intervention Information
== END 2017-08-18 14:30 | disposition home or self-care (01) | DRG 309 ==
LOC: F2W 15:54 → OBSVTOIN 08-15 14:40
PROVIDERS: ADMIT Internal Medicine; ATTEND Internal Medicine
DX: I48.1 Persistent atrial fibrillation (principal); I50.30 Unspecified diastolic (congestive) heart failure; R07.89 Other chest pain; I27.20 Pulmonary hypertension, unspecified; E66.9 Obesity, unspecified; Z68.41 Body mass index [BMI] 40.0-44.9, adult; M54.2 Cervicalgia; R51 Headache; Z86.79 Personal history of other diseases of the circulatory system; Z82.49 Family history of ischemic heart disease and other diseases of the circulatory system; Z79.01 Long term (current) use of anticoagulants; Z86.718 Personal history of other venous thrombosis and embolism
CPT/HCPCS: 96374; G0378; J1650; J2405; J2704; J3010; Q9967

== ENCOUNTER 2017-10-20 14:56 | Emergency (ER) | payer OTHER ==
--- NOTE | 2017-10-20 15:01 | EDPHY ---
H & P HPI/ROS: HPI CHIEF COMPLAINT: Right Nare epistaxis HISTORY OF PRESENT ILLNESS: Patient very pleasant 52-year-old female, history of atrial fibrillation on Coumadin presents to the emergency room with right Castillo epistaxis. Patient reports this started around 4:00 a.m. or approximately 11 hr ago. Unable to get it to stop so she seek medical evaluation here in the emergency room. She denies blood going down her posterior pharynx. Denies nausea vomiting. Denies facial trauma. Unsure exactly what her INR as she is on Coumadin. Upon arrival to the emergency room she appears well nontoxic she is hemodynamically stable. She is right Nare anterior bleed. Past Medical History: Atrial fibrillation on Coumadin, pericarditis. Past Surgical History: Open cholecystectomy, Social History: Denies daily use drugs alcohol tobacco products. Family History: Noncontributory ROS REVIEW OF SYSTEMS: A comprehensive 10 point review of systems is otherwise negative aside from elements mentioned in the history of present illness. Exam Constitutional appears well nontoxic triage nursing summary reviewed, vital signs reviewed, awake/alert. Eyes normal conjunctivae and sclera, EOMI, PERRLA. HENT right nare: Septal side anterior there is a pulsating blood vessel. No posterior bleed on exam.. moist mucus membranes, no epistaxis, neck supple/ no meningismus, no raccoon eyes. Respiratory clear to auscultation bilaterally, normal breath sounds, no respiratory distress, no wheezing. Cardiovascular rate normal, regular rhythm, no murmur, no edema, distal pulses normal. Gastrointestinal soft, non-tender, no rebound, no guarding, normal bowel sounds, no distension, no pulsatile mass. Genitourinary no CVA tenderness. Musculoskeletal no midline vertebral tenderness, full range of motion, no calf swelling, no tenderness of extremities, no meningismus, good pulses, neurovascularly intact. Skin pink, warm, & dry, no rash, skin atraumatic. Neurologic awake, alert and oriented x 3, AAOx3, moves all 4 extremities equally, motor intact, sensory intact, CN II-XII intact, normal cerebellar, normal vision, normal speech. Psychiatric normal mood/affect. Heme/Lymph/Immune no lymphadenopathy. Differential Diagnosis: Includes but is not limited to in a particular order anterior nose bleed on Coumadin, supratherapeutic INR, posterior nosebleed Medical Decision Making: Plan for this patient check INR, cauterized blood vessel that can visibly see pulsating on exam, and monitor for further bleeding. Referral to ENT. Re-evaluation: Procedure: Epistaxis cauterization Epistaxis. Under direct visualization on the right anterior near medial side, septum there is a visualized venous blood vessel oozing blood. This was cauterized with silver nitrate sticks under direct visualization. She tolerated this very well. Procedure time 10 min. Nasal clamp was placed after the cauterization. Good hemostasis at this time. 1552: Nasal clamp is been removed. No further epistaxis. Good hemostasis. Tylenol for pain Control. Will outpatient go home. Nasal clamp provided. Return precautions discussed. Follow-up ENT outpatient as well. INR checked. 2.1. Source: Patient - Personal History Tetanus Vaccine Date: WITHIN 10 YRS - Medical/Surgical History Hx Asthma: No Hx Chronic Respiratory Disease: No Hx Diabetes: No Hx Cardiac Disease: Yes Hx Renal Disease: No Hx Cirrhosis: No Hx Alcoholism: No Hx HIV/AIDS: No Hx Splenectomy or Spleen Trauma: No Other PMH: atrial fibrillation, pericarditis, tubal ligation, open cholecystectomy, c section x3, migraines, mitral valve stenosis w/valve replacement ~2yrs ago, sleep apnea, acid reflux, obesity. perirectal abscess with surgery - Social History Smoking Status: Never smoked Constitutional: Initial Vital Signs Temperature (C) 36.8 C 10/20/17 15:04 Heart Rate 77 10/20/17 15:04 Respiratory Rate 16 10/20/17 15:04 Blood Pressure 111/77 10/20/17 15:04 O2 Sat (%) 96 10/20/17 15:04 O2 Delivery Mode Room Air Allergies/Adverse Reactions: No Known Allergies Allergy (Verified 10/20/17 15:02) Home Medications: Medication Instructions Recorded Pantoprazole Sodium [Protonix 40mg 40 mg PO BID 06/12/16 (*)] Ferrous Sulfate [Ferrous Sulf 325 325 mg PO BID 06/20/17 MG (*)] Potassium Cl [Klor-Con 20 meq (*)] 20 meq PO DAILY 06/20/17 Sucralfate [Carafate 1 GM (*)] 1 gm PO HS 06/20/17 Warfarin Sodium [Coumadin 2.5MG 2.5 mg PO DAILY16 06/20/17 (*)] Enoxaparin [Lovenox 100 MG (*)] 100 mg SC BID #14 syr 08/18/17 Sotalol HCl [Betapace 80 MG (*)] 80 mg PO BID #60 tab 08/18/17 Medical Decision Making - Data Points Laboratory Results: 10/20/17 15:30 PT 23.4 SEC H SEC (12.0-15.0) INR 2.14 H (0.83-1.16) APTT 40.1 SEC H SEC (23.0-38.0) Medications Given: Discontinued Medications Acetaminophen (Tylenol) 1,000 mg PO EDNOW ONE Stop: 10/20/17 15:45 Last Admin: 10/20/17 15:50 Dose: 1,000 mg Departure - Departure Disposition: Home, Routine, Self-Care Clinical Impression: Epistaxis Instructions: Nosebleed (ED) Additional Instructions: 1. Return to the emergency room if you have worsening symptoms includes recurrence of bleeding. 2. Apply direct pressure if you bleeding and for 20 min tilt your head down. 3. Follow up with ENT. Referrals: HAILEY SUMNER,Ruben [Primary Care Provider] - As per Instructions Griselda Bryant MD [Medical Doctor] - As per Instructions
[2017-10-20] MEDS: SILVER NITRATE APPLICATOR 1 APPL TP ONE ×2 (15:05→17:15)
[2017-10-20] MEDS ORDERED: SILVER NITRATE APPLICATOR 1 APPL TP ONE ×2 (15:07→15:11)
[2017-10-20] MEDS ORDERED: OXYMETAZOLINE 30 ML NASAL SPRAY ONE (15:08)
[2017-10-20 15:10] VITALS: RESP 16; TEMP 98.2
[2017-10-20] MEDS ORDERED: ACETAMINOPHEN 500 MG TAB PO ONE (15:44)
[2017-10-20 15:49] LABS: INR 2.14 (0.83-1.16); PROTIME(PATIENT) 23.4 SEC (12.0-15.0)
[2017-10-20 17:00] VITALS: PULSE 77; O2SAT 96
[2017-10-20 17:07] VITALS: BP 94/62
== END 2017-10-20 16:59 | disposition home or self-care (01) ==
LOC: CED 14:56
PROC: 3E09XTZ Introduction of Destructive Agent into Nose, External Approach (ICD-10-PCS; principal; 2017-10-20)
DX: R04.0 Epistaxis (principal); Z79.01 Long term (current) use of anticoagulants
CPT/HCPCS: 85610-PO; 85730-PO

== ENCOUNTER 2017-10-24 16:45 | Emergency (ER) | payer OTHER ==
[2017-10-24] MEDS ORDERED: OXYMETAZOLINE 30 ML NASAL SPRAY EACHNARE ONE (17:00)
[2017-10-24 17:02] VITALS: RESP 18; TEMP 98.1
[2017-10-24] MEDS ORDERED: OXYMETAZOLINE 30 ML NASAL SPRAY ONE (17:05)
[2017-10-24] MEDS ORDERED: LIDOCAINE HCL 4% TOPICAL SOLN 50ML ONE (17:17)
[2017-10-24] MEDS ORDERED: LORazepam 0.5 MG TAB PO ONE (17:57)
[2017-10-24] MEDS ORDERED: ACETAMINOPHEN 500 MG TAB PO ONE (17:58)
[2017-10-24] MEDS ORDERED: LORAZEPAM 1 MG PREPACK#4 BTL TAKEHOME ONE (18:00)
--- NOTE | 2017-10-24 18:00 | EDPHY ---
H & P Time Seen by Provider: 10/24/17 16:55 HPI/ROS: CHIEF COMPLAINT: Epistaxis History by patient and HISTORY OF PRESENT ILLNESS: 52-year-old woman with history of atrial fibrillation on Coumadin presents complaining of ongoing nose bleed. Patient was seen for same thing 3 days ago and cauterized. Patient states subsequently she has had bleeding off and on for the past several hours it has been continuous. She put the nose clips that she had been given 3 days ago on 3 hr ago however it has not stopped the bleeding. She has had the nose clips on for those 3 hr. She feels a little bit of a headache and lightheaded but there has been no syncope, chest pain or shortness of breath. She does complain of bilateral ear pain. REVIEW OF SYSTEMS: As in HPI, and all other systems reviewed and are negative Smoking Status: Never smoked Physical Exam: General Appearance: Alert and no distress. Head: normocephalic, atraumatic, no sinus tenderness Eyes: Pupils equal and round no injection. Ears: TM clear bilat with slight erythema of bilateral canal and scant bleeding and left ear canal Nose: Positive active bleeding out of right nares, left nares clear OP: mucus membranes moist, no tonsillar enlargement, no exudates, positive blood in posterior oropharynx Neck: no meningismus, no cervical nodes, no submandibular nodes Respiratory: Chest is nontender, lungs are clear to auscultation. Cardiac: regular rate and rhythm. Gastrointestinal: Abdomen is soft and nontender, no masses, bowel sounds normal. Musculoskeletal: Neck is supple and nontender. Extremities have full range of motion and are nontender. Skin: No rashes or lesions. Constitutional: Initial Vital Signs Temperature (C) 36.7 C 10/24/17 17:01 Heart Rate 70 10/24/17 17:01 Respiratory Rate 18 10/24/17 17:01 Blood Pressure 115/84 H 10/24/17 17:01 O2 Sat (%) 97 10/24/17 17:01 O2 Delivery Mode Room Air Allergies/Adverse Reactions: No Known Allergies Allergy (Verified 10/24/17 16:56) Home Medications: Medication Instructions Recorded Pantoprazole Sodium [Protonix 40mg 40 mg PO BID 06/12/16 (*)] Ferrous Sulfate [Ferrous Sulf 325 325 mg PO BID 06/20/17 MG (*)] Potassium Cl [Klor-Con 20 meq (*)] 20 meq PO DAILY 06/20/17 Sucralfate [Carafate 1 GM (*)] 1 gm PO HS 06/20/17 Warfarin Sodium [Coumadin 2.5MG 2.5 mg PO DAILY16 06/20/17 (*)] Enoxaparin [Lovenox 100 MG (*)] 100 mg SC BID #14 syr 08/18/17 Sotalol HCl [Betapace 80 MG (*)] 80 mg PO BID #60 tab 08/18/17 MDM/Departure - [facility] Procedures: Procedure: Epistaxis control. After verbal consent was obtained, the patient was anesthetized with topical Afrin and lidocaine 4%. The anterior epistaxis was identified on the septum. The patient was treated with packing with TXA soaked platelets for 15 min. On re-evaluation the patient continued to bleed. Given that the patient just had cauterization 3 days ago, I opted to pack the patient with varicella rhino rocket. Following the procedure the patient was re-examined and the bleeding was well controlled. The patient tolerated the procedure well. The procedure was performed by myself. Medications Given: Discontinued Medications Acetaminophen (Tylenol) 1,000 mg PO EDNOW ONE Stop: 10/24/17 17:59 Last Admin: 10/24/17 18:05 Dose: 1,000 mg Lorazepam (Ativan) 0.5 mg PO EDNOW ONE Stop: 10/24/17 17:58 Last Admin: 10/24/17 18:05 Dose: 0.5 mg Lorazepam (Ativan 1 Mg Prepack#4) 1 btl TAKEHOME EDNOW ONE Stop: 10/24/17 18:01 Last Admin: 10/24/17 18:05 Dose: 1 btl Oxymetazoline HCl (Afrin Nasal [place]) 2 sprays EACHNARE EDNOW ONE Stop: 10/24/17 17:01 Last Admin: 10/24/17 17:14 Dose: 2 spr ED Course/Re-evaluation: 52-year-old woman on Coumadin presents with ongoing epistaxis. Packing with DEXA soaked cotton was unsuccessful and the patient had a rhino rocket placed. She was given Tylenol and Ativan for her pain and anxiety related to the procedure. Patient also complained of ear pain and test and inflammation in bilateral canals will be started on Cortisporin otic drops. We discussed return precautions and follow-up. Patient and family understand. - Depart Disposition: Home, Routine, Self-Care Clinical Impression: Acute anterior epistaxis Condition: Fair Instructions: Nosebleed (ED) Additional Instructions: You were seen by Dr. Donna Hernandez today. Keep nasal packing in place for at least 48 hr. See your primary care physician on Friday to have the packing removed. You may take Tylenol a 1000 mg every 6 hr as needed for pain and Ativan 0.5 mg (1/2 of a tablet) as needed every 8 hr. Return for any worsening or new concerns, including but not limited to dizziness or fainting, recurrent bleeding, fever or difficulty breathing. Referrals: HAILEY SUMNER,. [Primary Care Provider] - As per Instructions
[2017-10-24] MEDS ORDERED: NEOMYCIN/POLYMYX B/HC SUSP 10 ML OTIC.BTL EACHEAR ONE (18:46)
[2017-10-24 19:11] VITALS: BP 105/76; PULSE 74; O2SAT 96
== END 2017-10-24 19:11 | disposition home or self-care (01) ==
LOC: CED 16:45
DX: R04.0 Epistaxis (principal); Z79.01 Long term (current) use of anticoagulants

== ENCOUNTER 2017-10-26 11:06 | Emergency (ER) | payer OTHER ==
[2017-10-26] MEDS ORDERED: HYDROCOD/APAP 5/325 PREPACK#6 BTL TAKEHOME ONE (12:09)
--- NOTE | 2017-10-26 12:14 | EDPHY ---
H & P Time Seen by Provider: 10/26/17 11:42 HPI/ROS: CHIEF COMPLAINT: Epistaxis HISTORY OF PRESENT ILLNESS: 52-year-old female presents to the emergency department with epistaxis. The patient was seen initially at [facility] on 10/20/2016 with epistaxis. She had cauterization with silver nitrate and was doing well until the 24 of October where she had recurring bleed. Was seen again at [facility] and a rhino rocket was placed. She was told to keep this in until tomorrow and follow up with her primary care provider. The patient states that she has a lot of pain. She describes bad headache, pressure in both ears. No fevers or chills. No chest pain or difficulty breathing. No dysphagia. The patient states that she is having very small residual bleeding around the rhino rocket. She has also had some small bleeding in her posterior pharynx. REVIEW OF SYSTEMS: Constitutional: No fever, no chills. Eyes: No double or blurry vision. ENT: As above. No sore throat. Respiratory: No cough, no shortness of breath. Cardiac: No chest pain. Gastrointestinal: No abdominal pain, vomiting or diarrhea. Genitourinary: No dysuria. Musculoskeletal: No neck or back pain. Skin: No rashes. Neurological: No headache. Past Medical/Surgical History: Atrial fibrillation Social History: Smoking Status: Never smoked Physical Exam: General Appearance: Alert, no distress. Afebrile. Eyes: Pupils equal and round. Extraocular motions are all intact. ENT: Mouth: Mucous membranes moist. Rhino rocket present in the right nostril. There is no active bleeding noted around the rhino rocket. No blood in noted in the posterior pharynx. No hemotympanum. Respiratory: No wheezing, rhonchi, or rales, lungs are clear to auscultation. Cardiovascular: Regular rate and rhythm. Gastrointestinal: Abdomen is soft and nontender, no masses, no rebound or guarding, bowel sounds normal. Neurological: Alert and oriented x 3, cranial nerves II through XII grossly intact Skin: Warm and dry, no rashes. Musculoskeletal: Nontender to palpate along the cervical, thoracic or lumbar spine. Neck is supple. Extremities: Full range of motion and no peripheral edema. Psychiatric: Patient is oriented X 3, there is no agitation. Constitutional: Initial Vital Signs Temperature (C) 37.0 C 10/26/17 11:14 Heart Rate 74 10/26/17 11:14 Respiratory Rate 16 10/26/17 11:14 Blood Pressure 127/80 H 10/26/17 11:14 O2 Sat (%) 96 10/26/17 11:14 O2 Delivery Mode Room Air Allergies/Adverse Reactions: No Known Allergies Allergy (Verified 10/24/17 16:56) Home Medications: Medication Instructions Recorded Pantoprazole Sodium [Protonix 40mg 40 mg PO BID 06/12/16 (*)] Ferrous Sulfate [Ferrous Sulf 325 325 mg PO BID 06/20/17 MG (*)] Potassium Cl [Klor-Con 20 meq (*)] 20 meq PO DAILY 06/20/17 Sucralfate [Carafate 1 GM (*)] 1 gm PO HS 06/20/17 Warfarin Sodium [Coumadin 2.5MG 2.5 mg PO DAILY16 06/20/17 (*)] Enoxaparin [Lovenox 100 MG (*)] 100 mg SC BID #14 syr 08/18/17 Sotalol HCl [Betapace 80 MG (*)] 80 mg PO BID #60 tab 08/18/17 Hydrocodone/APAP 5/325 [Otho 1 each PO Q4-6PRN PRN #10 tab 10/26/17 5/325 (*)] Medical Decision Making ED Course/Re-evaluation: 52-year-old female presents to the emergency department with epistaxis. On it physical examination, the patient has a rhino rocket in place with no active bleeding noted. The patient does complain of great deal of pain. She understands that she is at high risk for recurring epistaxis. I offered removing the rhino rocket in the emergency department and explained the risk of recurring bleeding. I also recommended that she follow up with ENT in the office tomorrow to recheck. I spoke with Nellie Diallo, on-call ENT, who recommended that she follow up after she has had the rhino rocket placed for 5-7 days. Patient elected to leave the rhino rocket in. She will give be given take-home pack of hydrocodone to use as needed. Instructed to return to the emergency department if she developed recurring headache, fever, or any other concerns. The case was discussed with Dr. Yuan Law, secondary supervising physician , who did not directly evaluate the patient but agrees with treatment plan. Differential Diagnosis: Including but not limited to epistaxis, intracranial bleed, electrolyte abnormality - Data Points Medications Given: Discontinued Medications Hydrocodone Bitart/Acetaminophen (Otho 5/325mg Prepack#6) 1 btl TAKEHOME EDNOW ONE Stop: 10/26/17 12:10 Last Admin: 10/26/17 12:26 Dose: 1 btl Departure - Departure Disposition: Home, Routine, Self-Care Clinical Impression: Epistaxis Condition: Good Instructions: Nosebleed (ED) Additional Instructions: Follow up with ENT this week to recheck and have nasal packing removed. Hydrocodone as needed for severe pain. Seguimiento con el Otorrinolaringologo esta semana para un chequeo y para que le quiten el empaque. Hydrocodone corey sea necesario para el dolor tong. Referrals: [facility],CAMPES[facility] [Other] - As per Instructions Jean Carlos Lawrence MD [Medical Doctor] - 1-2 days without fail ([facility] E[facility]) Prescriptions: Hydrocodone/APAP 5/325 [Otho 5/325 (*)] 1 each PO Q4-6PRN PRN #10 tab PRN Reason: Pain, Severe
[2017-10-26 12:31] VITALS: BP 118/76; PULSE 71; RESP 18; TEMP 97.7; O2SAT 94
== END 2017-10-26 12:30 | disposition home or self-care (01) ==
DX: R04.0 Epistaxis (principal); Z79.01 Long term (current) use of anticoagulants